=== PATIENT | female | born 1930 | race Caucasian/White ===

== ENCOUNTER 2016-06-28 20:34 | Observation (INO) ==
[2016-06-29] MEDS ORDERED: Naloxone 0.4 MG/ML INJ IVP PRN (01:59)
[2016-06-29] MEDS ORDERED: *HR* Morphine 2 MG/ML SYRINGE IVP PRN (01:59)
[2016-06-29] MEDS ORDERED: Ondansetron 4 MG/2 ML VIAL IVP PRN (01:59)
[2016-06-29] MEDS ORDERED: Acetaminophen 325 MG TABLET PO PRN ×2 (01:59→17:50)
[2016-06-29] MEDS ORDERED: *HR* OxyCODONE Immed Rel 5 MG TABLET PO PRN (01:59)
[2016-06-29] MEDS ORDERED: 0.9 % Sodium Chloride 1,000 ML IVC SCH (02:00)
--- NOTE | 2016-06-29 02:11 | Internal Med History&Physical ---
Date of Encounter: 06/28/16 Time of Encounter: 23:45 Assessment and Plan (1) Closed subcapital fracture of right femur Status: Acute . Qualifiers: Encounter type: initial encounter Qualified Code(s): S72.011A - Unspecified intracapsular fracture of right femur, initial encounter for closed fracture (2) At risk for fall due to comorbid condition Status: Acute . (3) At risk for activity intolerance Status: Acute . (4) At risk for acute confusion Status: Acute . (5) Advanced dementia Status: Chronic . (6) Schizophrenia, unspecified Status: Chronic . Qualifiers: Schizophrenia type: undifferentiated schizophrenia Qualified Code(s): F20.3 - Undifferentiated schizophrenia (7) Expressive aphasia Status: Chronic . (8) Blindness of both eyes Status: Chronic . Internal Medicine - H&P: HPI Chief complaint: Mechanical fall. Right hip fracture. Admitted From: Hospital to Hospital Transfer (Hospital transfer from [place], [place], ED) History of present illness: Ms. Cerda is a 85 year old female history significant for advanced dementia unspecified/ behavioral disturbance, depression and anxiety disorder/ schizophrenia unspecified/panic disorder, hypothyroidism, osteoarthritis, osteoporosis, history of traumatic subdural hemorrhage/CVA/expressive aphasia, recurrent UTIs, hypertension, dyslipidemia, blindness unspecified, frequent falls, MIREYA, nonsmoker The patient was visited and interviewed and examined. She presents with advanced dementia and expressive aphasia. She is a non-historian of circumstances and events. Details of collected from outside medical records, emergency medical staff triage and [facility] database. The patient is admitted to the [facility] as a hospital transfer from the emergency department at [facility]. She presented there via EMS services. Right hip injury. The patient has advanced dementia. EMS staff reported patient had fell a few days earlier and an x-ray had been done in the [facility] where she lives in long- term care assignment of ER presentation. This study demonstrated a closed right subcapital femoral fracture. Cumulative laboratory and radiographic data base was considered and discussed. Pertinent ancillary medical records including ECW and PCI documentation when available was reviewed and considered. Given the patient's presenting concerns, past medical history, clinical findings and symptoms, she is admitted at this time will undergo further evaluation and disposition. Orders were written as per the computerized physician customs and border protection officer system.......................................................................... .................... Consultative opinions will be sought as clinical circumstances justify. Initial consultative opinion has been requested of orthopedic surgery. Pain management needs will be addressed. Laboratory+ radiographic data base will be updated as appropriate. Studies include: urine culture, pt/inr, aptt, cardiac injury panel, BNP, metabolic and hematologic panel, magnesium, phosphorus, ionized calcium, thyroid panel, lipid profile, A1c, C-peptide, CRP, sedimentation rate, blood gas, UA, lactic acid, serologies, etc. Precautions: Aspiration, fall, delirium protocol/surveillance initiated. Telemetry with continuous hemodynamic monitoring and pulse oximetry initiated. Empiric antibody coverage: Intravenous Azteonam pending culture data. Special studies: chest x-ray, telemetry, EKG. and preoperative echocardiogram. Pulmonary toilet: Incentive spirometry. PRNaerosol bronchodilator, mucolytic, antitussive. Supplemental oxygen. Corticosteroid therapyPRN. CPAP/BiPAP supplemental oxygen delivery employedPRN. Aerosol Mucomyst therapy may be employedPRN. Fluid and electrolyte repletion efforts will proceed. Careful attention to fluid balance and renal recovery will be emphasized. Avoidance of nephrotoxic exposure and adverse drug drug interaction in the setting of impaired renal function will be monitored closely. Acute coronary syndrome protocol/surveillance initiated. DVT and PUD prophylaxis initiated: PPI therapy, intermittent pneumatic cuffs. Subcutaneous heparin. Early ambulation will be encouraged. Immunization updates recommended. Influenza and pneumococcal vaccinations as part of ongoing preventative healthcare recommendations strongly recommended. Smoking cessation counseling briefly addressed. Patient is a nonsmoker. Advanced care directive discussion briefly addressed. Patient does not declare any healthcare restrictions at this time. Cardiovascular risk appraisal and cardiovascular risk reduction efforts will be emphasized. Physical +occupational therapy consulted to evaluate patient's functional capacity and progress mobility as her circumstances permit. Nutrition/dietary education counseling may be considered as circumstances justify. Outpatient medication schedules will be reviewed, confirmed and facilitated as appropriate. Reconciliation of home treatments including adjustments, substitutions and reintroduction into the treatment regimen will address necessary maintenance therapies for chronic pre-existing medical conditions. Plan of care has been reviewed and discussed in detail with the patient's caregivers. Questions addressed. Hospital course dictated by clinical findings, treatment response and potential consultative interventions. Patient is at risk for further acute clinical decline due to her age, chief complaints and comorbid conditions. Condition is serious. Prognosis is guarded. CODE STATUS is full. Past Med Surg Social Fam HX - Past Medical History Source: old records reviewed Medical history: arthritis, CVA (Traumatic subdural hemorrhage history. Expressive aphasia.), dementia, GERD, hyperlipidemia, hypertension, osteoporosis , renal disease (Stress urinary incontinence with frequent urinary tract infections.), thyroid disease, other (Blindness. Macular degeneration.) Psychiatric history: anxiety, depression, panic disorder, schizophrenia, other - Past Surgical History Surgical History: non-contributory, other - Social History Smoking Status: Unknown if ever smoked Smokeless Tobacco Status: No Alcohol use: none Drug use: none Occupational status: unemployed Current living situation: [facility] Activity Level: Independent ambulation, Mostly sedentary Recent Out of Country Travel Within the Last 8 Weeks: No Exposure or Possible Exposure to Illness During Travel: No - Family History Father Living Status: Hx Family Cardiac Disorders: Yes Hx Family Respiratory Disorders: Yes Hx Family Cancer: Yes Hx Family GI Disorders: No Hx Family Genitourinary Disorders: No Hx Family Endocrine Disorder: Yes Hx Family Musculoskeletal Disorders: No Hx Family Neuromuscular Disorders: No Hx Family Neurologic Disorders: No Hx Family HEENT Disorders: No Hx Family Autoimmune Disorders: No Hx Family Reproductive Disorders: No Hx Family Psychosocial Disorders: No Hx Family Medical Disorders: No Internal Medicine - H&P: Meds Alendronate Sodium [Fosamax] 70 mg PO QWEEK 05/05/15 [History] Calcium Carbonate/Vitamin D3 [Calcium 600 + Vit D Softgel] 1 each PO DAILY 05/05 [History] Citalopram [CeleXA] 10 mg PO DAILY 05/05/15 [History] Levothyroxine [Synthroid] 75 mcg PO DAILY 05/05/15 [History] Lisinopril [Zestril] 10 mg PO DAILY 05/05/15 [History] Magnesium Hydroxide [Milk of Magnesia] 30 ml PO DAILY PRN 05/05/15 [History] Propranolol [Inderal] 20 mg PO BID 05/05/15 [History] TraMADol [Ultram] 50 mg PO TID 05/05/15 [History] Donepezil [Aricept] 5 mg PO DAILY 11/16/15 [History] Potassium Chloride [K-Tab ER] 1 tab PO DAILY 06/28/16 [History] RisperiDONE [RisperDAL] 0.25 mg PO DAILY 06/28/16 [History] HYDROcodone/Acet 5/325 mg [[place] 5-325 mg] 1 tab PO Q8H PRN 06/29/16 [History] Acetaminophen [Tylenol] 650 mg PO BID PRN #60 tablet 07/01/16 [Rx] Acetaminophen [Tylenol] 650 mg PO Q6HR PRN #60 tablet 07/01/16 [Rx] Ciprofloxacin HCl [Cipro] 500 mg PO BID #14 tablet 07/01/16 [Rx] Docusate [Colace] 100 mg PO BID PRN #60 capsule 07/01/16 [Rx] Omeprazole [PriLOSEC] 20 mg PO DAILY@0630 #30 capsule. 07/01/16 [Rx] OxyCODONE Immed Rel [Roxicodone 5 MG] 5 mg PO Q6HR PRN #30 tablet 07/01/16 [Rx] Sennosides/Docusate Sodium [Senna Plus] 1 each PO DAILY #60 tablet 07/01/16 [Rx] Thiamine (B-1) [Vitamin B-1] 200 mg PO DAILY #90 tablet 07/01/16 [Rx] Allergies Penicillins Allergy (Verified 05/05/15 17:23) See Comments ROS unobtainable: due to mental status All Systems PM: A 10-system review of systems was performed and is negative for pertinent findings except as documented above in the HPI. - Constitutional Constitutional: as per HPI - EENT Eyes: as per HPI Ears: as per HPI Nose, mouth and throat: as per HPI - Breasts Breasts: as per HPI - Cardiovascular Cardiovascular ROS IM: as per HPI - Respiratory Respiratory: as per HPI - Gastrointestinal Gastrointestinal: as per HPI - Genitourinary Genitourinary: as per HPI - Musculoskeletal Musculoskeletal ROS IM: as per HPI - Integumentary Integumentary IM: as per HPI - Neurological Neurological ROS: as per HPI - Psychiatric Psychiatric: as per HPI - Endocrine Endocrine IM: as per HPI - Hematologic/Lymphatic Hematologic/Lymphatic: as per HPI - Allergic/Immunologic Allergic/Immunologic: as per HPI - Constitutional Vitals: Temp Pulse Resp BP Pulse Ox 98.3 F 96 17 142/94 94 L 06/28/16 22:52 06/28/16 22:52 06/28/16 22:52 06/28/16 22:52 06/28/16 22:52 General appearance: Present: cachectic, A&O X 1, disheveled. Absent: cooperative, answers questions appropriately - Head Head exam: Present: atraumatic, normocephalic - Eye Eye exam: Present: conjuntiva pink, sclera anicteric Pupils: Absent: normal accommodation - ENT ENT exam: Present: mucous membranes moist, normal oropharynx - Neck Neck exam general surgery: Present: full ROM, supple, trachea midline. Absent: lymphadenopathy - Respiratory Respiratory exam: Present: decreased breath sounds, CTAB. Absent: accessory muscle use, rales, rhonchi, wheezes - Cardiovascular Cardiovascular exam: Present: distant heart sounds, RRR, +S1, +S2. Absent: diastolic murmur, gallop, rubs, systolic murmur - GI/Abdominal GI/Abdominal exam: Present: normal bowel sounds, soft, no peritoneal signs. Absent: distended, tenderness - Extremities Exam Extremities exam: Present: tenderness, warm, radial pulses palpable and symetrical. Absent: calf tenderness, cyanotic, full ROM, pedal edema - Expanded Lower Extremities Exam Hip exam: Present: shortening, swelling, tenderness. Absent: full ROM, normal inspection Neuro vascular tendon exam: Present: significant pain with passive ROM of distal joint Gait: Present: not tested/not observed, unable to bear weight - Neurological Exam Neurological exam: Present: altered, CN II-XII intact, motor sensory deficit, speech deficit. Absent: oriented X3, strengths equal and symetr throughout - Expanded Neurological Exam Neurological exam expanded: Present: ataxia, expressive aphasia, inattentive, protecting the airway Patient oriented to: Present: person. Absent: place, time Speech: Present: expressive aphasia Coma Scale Eye Opening: To Pain Coma Scale Motor Response: Withdraws to Pain Coma Scale Verbal Response: Incomprehensible Coma Scale Total: 8 - Psychiatric Psychiatric exam: Present: flat affect - Skin Skin exam: Present: dry, intact Internal Med - H&P Results - Labs CBC & Chem 7: 06/30/16 08:33 06/29/16 05:56 Labs: Abnormal lab results WBC 18.3 K/mcL (4.3-11.1) H 06/30/16 08:33 Neutrophils # 13.4 K/mcL (1.6-8.9) H 06/30/16 08:33 Monocytes # 1.9 K/mcL (0.0-1.3) H 06/30/16 08:33 PT 13.8 Seconds (9.4-12.1) H 06/29/16 05:56 VBG pH 7.47 pH Units (7.32-7.42) H 06/29/16 05:56 VBG pCO2 35 mmHg (41-51) L 06/29/16 05:56 VBG pO2 102 mmHg (25-40) H 06/29/16 05:56 BUN 22 mg/dL (7-20) H 06/29/16 05:56 Glucose 149 mg/dL (70-99) H 06/29/16 05:56 AST 65 Units/L (5-34) H 06/29/16 05:56 Albumin 3.4 g/dL (3.5-5.0) L 06/29/16 05:56 LDL Cholesterol, Calc 109 mg/dL (0-99) H 06/29/16 05:56 HDL Cholesterol 62 mg/dL (40-59) H 06/29/16 05:56 Urine Clarity Cloudy (Clear) A 06/29/16 22:00 Ur Specific [place] 1.030 (1.010-1.025) H 06/29/16 22:00 Urine Protein 100 mg/dL (Neg-Trace) H 06/29/16 22:00 Urine Glucose (UA) 250 mg/dL (Normal) H 06/29/16 22:00 Urine Blood Large (Negative) H 06/29/16 22:00 Urine Nitrite Positive (Negative) A 06/29/16 22:00 Urine Bilirubin Small (Negative) H 06/29/16 22:00 Ur Leukocyte Esterase Moderate (Negative) H 06/29/16 22:00 Urine Microscopic RBC 15-30 per hpf (0-3) H 06/29/16 22:00 Urine Microscopic WBC TNTC per hpf (0-3) H 06/29/16 22:00 Ur Squamous Epith Cells Moderate per lpf (None-Few) H 06/29/16 22:00 Urine Bacteria Many per hpf (None-Few) H 06/29/16 22:00 Ur Culture Indicated? YES (NO) A 06/29/16 22:00 Laboratory Last Values WBC 18.3 K/mcL (4.3-11.1) H 06/30/16 08:33 RBC 4.61 M/mcL (3.82-4.97) 06/30/16 08:33 Hgb 13.8 g/dL (11.5-15.4) 06/30/16 08:33 Hct 42.3 % (35.3-44.9) 06/30/16 08:33 MCV 91.8 fL (83.0-100.0) 06/30/16 08:33 MCH 29.9 pg (28.0-33.3) 06/30/16 08:33 MCHC 32.6 g/dL (31.6-35.5) 06/30/16 08:33 RDW 14.0 % (11.5-14.5) 06/30/16 08:33 Plt Count 205 K/mcL (140-400) 06/30/16 08:33 MPV 10.8 fL (9.4-12.4) 06/30/16 08:33 Immature Gran % 0.5 % (0-4) 06/30/16 08:33 Seg Neutrophils % 73.2 % 06/30/16 08:33 Lymphocytes % 15.1 % 06/30/16 08:33 Monocytes % 10.2 % 06/30/16 08:33 Eosinophils % 0.9 % 06/30/16 08:33 Basophils % 0.1 % 06/30/16 08:33 Neutrophils # 13.4 K/mcL (1.6-8.9) H 06/30/16 08:33 Lymphocytes # 2.8 K/mcL (0.6-4.6) 06/30/16 08:33 Monocytes # 1.9 K/mcL (0.0-1.3) H 06/30/16 08:33 Eosinophils # 0.2 K/mcL (0.0-0.6) 06/30/16 08:33 Basophils # 0.0 K/mcL (0.0-0.2) 06/30/16 08:33 PT 13.8 Seconds (9.4-12.1) H 06/29/16 05:56 INR 1.3 06/29/16 05:56 APTT 32.9 Seconds (26.0-36.0) 06/29/16 05:56 VBG pH 7.47 pH Units (7.32-7.42) H 06/29/16 05:56 VBG pCO2 35 mmHg (41-51) L 06/29/16 05:56 VBG pO2 102 mmHg (25-40) H 06/29/16 05:56 VBG HCO3 25.5 mEq/L (21-27) 06/29/16 05:56 Sodium 139 mEq/L (136-145) 06/29/16 05:56 Potassium 3.8 mEq/L (3.5-4.5) 06/29/16 05:56 Chloride 106 mEq/L (98-109) 06/29/16 05:56 Carbon Dioxide 21 mEq/L (19-29) 06/29/16 05:56 BUN 22 mg/dL (7-20) H 06/29/16 05:56 Creatinine 0.87 mg/dL (0.57-1.11) 06/29/16 05:56 Est GFR ( Amer) > 60 (> 60) 06/29/16 05:56 Est GFR (Non-Af Amer) > 60 (> 60) 06/29/16 05:56 BUN/Creatinine Ratio 25 (6-26) 06/29/16 05:56 Glucose 149 mg/dL (70-99) H 06/29/16 05:56 Calculated Osmolality 294 (280-300) 06/29/16 05:56 Calcium 9.1 mg/dL (8.6-10.8) 06/29/16 05:56 Phosphorus 3.0 mg/dL (2.3-4.7) 06/29/16 05:56 Magnesium 1.7 mg/dL (1.6-2.6) 06/29/16 05:56 Total Bilirubin 1.1 mg/dL (0.2-1.2) 06/29/16 05:56 AST 65 Units/L (5-34) H 06/29/16 05:56 ALT 20 Units/L (0-55) 06/29/16 05:56 Alkaline Phosphatase 83 Units/L (38-126) 06/29/16 05:56 Serum Total Protein 6.6 g/dL (6.0-8.3) 06/29/16 05:56 Albumin 3.4 g/dL (3.5-5.0) L 06/29/16 05:56 Globulin 3.2 g/dL (2.4-3.5) 06/29/16 05:56 Albumin/Globulin Ratio 1.1 (1.1-2.2) 06/29/16 05:56 Triglycerides 62 mg/dL (< 150) 06/29/16 05:56 Cholesterol 183 mg/dL (< 200) 06/29/16 05:56 LDL Cholesterol, Calc 109 mg/dL (0-99) H 06/29/16 05:56 VLDL Cholesterol, Calc 12 mg/dL (< 31) 06/29/16 05:56 HDL Cholesterol 62 mg/dL (40-59) H 06/29/16 05:56 Cholesterol/HDL Ratio 3.0 (0-4.9) 06/29/16 05:56 Vitamin B12 325 pg/mL (213-816) 06/30/16 08:33 Urine Color Dark Yellow (Yellow) 06/29/16 22:00 Urine Clarity Cloudy (Clear) A 06/29/16 22:00 Urine pH 6.5 pH Units (5.0-8.0) 06/29/16 22:00 Ur Specific [place] 1.030 (1.010-1.025) H 06/29/16 22:00 Urine Protein 100 mg/dL (Neg-Trace) H 06/29/16 22:00 Urine Glucose (UA) 250 mg/dL (Normal) H 06/29/16 22:00 Urine Ketones Negative mg/dL (Negative) 06/29/16 22:00 Urine Blood Large (Negative) H 06/29/16 22:00 Urine Nitrite Positive (Negative) A 06/29/16 22:00 Urine Bilirubin Small (Negative) H 06/29/16 22:00 Urine Urobilinogen Normal mg/dL (Normal) 06/29/16 22:00 Ur Leukocyte Esterase Moderate (Negative) H 06/29/16 22:00 Urine Microscopic RBC 15-30 per hpf (0-3) H 06/29/16 22:00 Urine Microscopic WBC TNTC per hpf (0-3) H 06/29/16 22:00 Ur Squamous Epith Cells Moderate per lpf (None-Few) H 06/29/16 22:00 Urine Bacteria Many per hpf (None-Few) H 06/29/16 22:00 Hyaline Casts None Seen per lpf (None-Few) 06/29/16 22:00 Ur Culture Indicated? YES (NO) A 06/29/16 22:00 - Impressions Vital Signs Temp Pulse Resp BP Pulse Ox 06/28/16 22:52 98.3 F 96 17 142/94 94 L Intake and Output 06/28/16 06/28/16 06/29/16 15:59 23:59 07:59 Output Total 50 / 50 Balance -50 / -50 Output: Urine 50 / 50 Urethral ([place]) 50 / 50 Other: Weight 56.3 kg Allergies Allergy/AdvReac Type Severity Reaction Status Date / Time Penicillins Allergy See Verified 05/05/15 17:23 Comments Abnormal lab results PT 13.8 Seconds (9.4-12.1) H 06/29/16 05:56 VBG pH 7.47 pH Units (7.32-7.42) H 06/29/16 05:56 VBG pCO2 35 mmHg (41-51) L 06/29/16 05:56 VBG pO2 102 mmHg (25-40) H 06/29/16 05:56 Vital Signs Temp Pulse Resp BP Pulse Ox 06/29/16 06:33 95 06/29/16 04:00 98.4 F 98 18 146/91 94 L 06/28/16 22:52 98.3 F 96 17 142/94 94 L Intake and Output 06/28/16 06/28/16 06/29/16 15:59 23:59 07:59 Output Total 50 / 50 Balance -50 / -50 Output: Urine 50 / 50 Urethral ([place]) 50 / 50 Other: Weight 56.3 kg Chest X-Ray 06/29/16 02:38 IMPRESSION: Scattered opacities throughout the lungs either atelectasis or asymmetric pneumonia D/ / Jac Bean MD / Jac Bean MD Interpreting Provider: Jac Bean MD - Attending Attestation Allergies Penicillins Allergy (Verified 05/05/15 17:23) See Comments Home Medications Medication Instructions Recorded Confirmed Type Alendronate Sodium [Fosamax] 70 mg PO QWEEK 05/05/15 06/29/16 History Calcium Carbonate/Vitamin D3 1 each PO DAILY 05/05/15 06/29/16 History [Calcium 600 + Vit D Softgel] Citalopram [CeleXA] 10 mg PO DAILY 05/05/15 06/29/16 History Levothyroxine [Synthroid] 75 mcg PO DAILY 05/05/15 06/29/16 History Lisinopril [Zestril] 10 mg PO DAILY 05/05/15 06/29/16 History Magnesium Hydroxide [Milk of 30 ml PO DAILY PRN 05/05/15 06/29/16 History Magnesia] Propranolol [Inderal] 20 mg PO BID 05/05/15 06/29/16 History TraMADol [Ultram] 50 mg PO TID 05/05/15 06/29/16 History Donepezil [Aricept] 5 mg PO DAILY 11/16/15 06/29/16 History Potassium Chloride [K-Tab ER] 1 tab PO DAILY 06/28/16 06/29/16 History RisperiDONE [RisperDAL] 0.25 mg PO DAILY 06/28/16 06/29/16 History HYDROcodone/Acet 5/325 mg [[place] 1 tab PO Q8H PRN 06/29/16 06/29/16 History 5-325 mg] Prescriptions Medication Instructions Recorded Type Acetaminophen [Tylenol] 650 mg PO BID PRN #60 tablet 07/01/16 Rx Acetaminophen [Tylenol] 650 mg PO Q6HR PRN #60 tablet 07/01/16 Rx Ciprofloxacin HCl [Cipro] 500 mg PO BID #14 tablet 07/01/16 Rx Docusate [Colace] 100 mg PO BID PRN #60 capsule 07/01/16 Rx Omeprazole [PriLOSEC] 20 mg PO DAILY@0630 #30 capsule. 07/01/16 Rx OxyCODONE Immed Rel [Roxicodone 5 5 mg PO Q6HR PRN #30 tablet 07/01/16 Rx MG] Sennosides/Docusate Sodium [Senna 1 each PO DAILY #60 tablet 07/01/16 Rx Plus] Thiamine (B-1) [Vitamin B-1] 200 mg PO DAILY #90 tablet 07/01/16 Rx Medications Discontinued Medications Acetaminophen (Tylenol) 650 mg PO Q6HR PRN PRN Reason: Mild Pain (1-3) Stop: 12/29/16 02:00 Acetaminophen (Tylenol) 650 mg PO Q6HR [facility] Stop: 07/02/16 12:01 Last Admin: 07/01/16 11:41 Dose: 650 mg Acetaminophen (Tylenol) 650 mg PO BID PRN PRN Reason: Mild Pain (1-3) Stop: 12/29/16 02:00 Aspirin (Aspirin) 81 mg PO DAILY [facility] Stop: 12/29/16 09:01 Last Admin: 07/01/16 09:19 Dose: 81 mg Calcium Carbonate (Tums) 1 mg PO DAILY [facility] Stop: 12/29/16 09:01 Last Admin: 07/01/16 09:21 Dose: Citalopram Hydrobromide (Celexa) 10 mg PO DAILY [facility] Stop: 12/29/16 09:01 Last Admin: 07/01/16 09:09 Dose: 10 mg Docusate Sodium (Colace) 100 mg PO BID PRN PRN Reason: Constipation Stop: 12/29/16 02:00 Enoxaparin Sodium (Lovenox) 30 mg SQ 0600 [facility] PRN Reason: Protocol Stop: 12/30/16 06:01 Last Admin: 07/01/16 06:00 Dose: 30 mg Enoxaparin Sodium (Lovenox) 30 mg SQ ONCE ONE PRN Reason: Protocol Stop: 06/29/16 17:28 Last Admin: 06/29/16 18:21 Dose: 30 mg Sodium Chloride (0.9 % Sodium Chloride) 1,000 mls @ 50 mls/hr IVC .Q20H [facility] Stop: 12/29/16 02:01 Dextrose/Sodium Chloride (D5% And 0.45% Nacl 1000 Ml Bag) 1,000 mls @ 75 mls/ hr IVC .[id number] [facility] Stop: 12/29/16 18:01 Last Infusion: 07/01/16 17:30 Dose: 0 mls/hr Aztreonam 500 mg/ Dextrose 100 mls @ 200 mls/hr IVPB Q8HR [facility] Stop: 12/30/16 01:38 Last Infusion: 06/30/16 03:45 Dose: 0 mls/hr Ciprofloxacin Lactate (Cipro 400 Mg/200 Ml) 400 mg in 200 mls @ 200 mls/hr IVPB Q12HR [facility] Stop: 12/30/16 18:01 Last Infusion: 07/01/16 09:24 Dose: 0 mls/hr Levothyroxine Sodium (Synthroid) 75 mcg PO DAILY [facility] Stop: 12/29/16 09:01 Last Admin: 06/30/16 09:54 Dose: 75 mcg Levothyroxine Sodium (Synthroid) 75 mcg PO DAILY@0600 [facility] Stop: 12/29/16 09:01 Last Admin: 07/01/16 06:02 Dose: 75 mcg Lisinopril (Zestril) 10 mg PO DAILY [facility] PRN Reason: Protocol Stop: 12/29/16 09:01 Last Admin: 07/01/16 09:08 Dose: 10 mg Morphine Sulfate (Morphine Sulfate) 2 mg IVP Q4HR PRN PRN Reason: Severe Pain (7-10) Stop: 12/29/16 02:00 Naloxone HCl (Narcan) 0.4 mg IVP Q2MIN PRN PRN Reason: Opioid Reversal Stop: 12/29/16 02:00 Omeprazole (Prilosec) 20 mg PO DAILY@0630 [facility] PRN Reason: Protocol Stop: 12/29/16 06:31 Last Admin: 07/01/16 06:00 Dose: 20 mg Ondansetron HCl (Zofran) 4 mg IVP Q8HR PRN PRN Reason: Nausea And Vomiting Stop: 12/29/16 02:00 Oxycodone HCl (Roxicodone) 5 mg PO Q6HR PRN PRN Reason: Moderate Pain (4-6) Stop: 12/29/16 02:00 Potassium Chloride (Potassium Chloride) 20 meq PO DAILY [facility] Stop: 12/29/16 09:01 Last Admin: 07/01/16 09:18 Dose: 20 meq Propranolol HCl (Inderal) 20 mg PO BID [facility] Stop: 12/29/16 09:01 Last Admin: 07/01/16 09:08 Dose: 20 mg Risperidone (Risperdal) 0.25 mg PO DAILY [facility] Stop: 12/29/16 09:01 Last Admin: 07/01/16 09:08 Dose: 0.25 mg Senna/Docusate Sodium (Senna Plus) 2 each PO DAILY [facility] PRN Reason: Protocol Stop: 12/29/16 18:01 Last Admin: 07/01/16 09:19 Dose: 2 each Thiamine HCl (Vitamin B-1) 200 mg PO DAILY [facility] Stop: 12/29/16 18:46 Last Admin: 07/01/16 09:18 Dose: 200 mg Tramadol HCl (Ultram) 50 mg PO QID [facility] Stop: 12/29/16 09:01 Last Admin: 07/01/16 13:38 Dose: Not Given Non-Admin Reason: Patient Refused Microbiology Results 06/29/16 22:00 Urine,Clean Catch Urine Culture - Final Proteus mirabilis Nursing Notes 07/01/16 16:58 Nurse Note by Candace Skinner Addendum entered by Candace Skinner, RN 07/01/16 16:59: [facility] called for transport with ETA of 20 minutes Original Note: tu Stark aware of transfer to [facility] and [facility] Initialized on 07/01/16 16:58 - END OF NOTE 07/01/16 16:55 Nurse Note by Candace Skinner report called to [place] [facility] [place] Initialized on 07/01/16 16:55 - END OF NOTE 07/01/16 16:40 Nurse Note by Candace Skinner charting completed by student nurse Kati Melvin reviewed Initialized on 07/01/16 16:40 - END OF NOTE 07/01/16 15:30 (created 07/01/16 16:08) Nurse Note by Candace Skinner patient without void - bladder scan=40ml urine in bladder - Dr. Coffey aware Initialized on 07/01/16 16:08 - END OF NOTE 07/01/16 15:15 PT Missed Visit by Hussein Kumar PT Missed Visit PT Missed Visit Start: 06/29/16 08: 40 Freq: Status: Active Document 07/01/16 15:13 BRITTANY (Rec: 07/01/16 15:15 BRITTANY [id number]) Missed Visit Reason Comment Pt is not appropriate for skilled PT services at this time. See OT screen for details. Preliminary Draft Until Electronically Signed by Supervising Therapist Initialized on 07/01/16 15:15 - END OF NOTE 07/01/16 14:48 O.T. Screen by Lidia Loja Occupational Therapy Screen Start: 07/01/16 14: 45 Freq: Status: Active Document 07/01/16 14:45 TNB (Rec: 07/01/16 14:47 TNB [id number]) Rehab Screen Reason Reason for Screen Not a Skilled Rehab Candidate Comment Received OT consult. Pt not appropriate for PT/OT evaluation at this time. Pt unable arouse and follow 1 step commands to actively participate in evalution. Per RN, family member reports Pt spent most of her days sleeping in bed. Will d/c OT order. Pt planned to d/c back to [facility] today or tomorrow. Stroke Is patient being assessed for No rehabilitation for diagnosis of stroke? Preliminary Draft Until Electronically Signed by Supervising Therapist Initialized on 07/01/16 14:48 - END OF NOTE 07/01/16 11:33 Nurse Note by Miguelina Olsen dc'd by student nurse accompanied by instructor Initialized on 07/01/16 11:33 - END OF NOTE 07/01/16 09:42 Nurse Note by Miguelina Olsen 0900 medications administered by student nurse Sisi Santana accompanied by instructor Initialized on 07/01/16 09:42 - END OF NOTE 06/30/16 10:43 Nurse Note by Tim Vargas Student's charting reviewed. Initialized on 06/30/16 10:43 - END OF NOTE 06/30/16 09:47 Nurse Note by Tim Vargas Medications given per Janeen GOOD Initialized on 06/30/16 09:47 - END OF NOTE 06/30/16 08:07 PT Missed Visit by Yael Gonzalez PT Missed Visit PT Missed Visit Start: 06/29/16 08: 40 Freq: Status: Active Document 06/30/16 08:07 LJS (Rec: 06/30/16 08:07 LJS [id number]) Missed Visit Reason Missed Visit Reason Medical Hold Comment per hospitalist notes, family wanting to meet with orthopedic surgeon to discuss risk vs benefits for surgery. Will await decision to determine if surgery is appropriate for patient before PT eval performed. Preliminary Draft Until Electronically Signed by Supervising Therapist Initialized on 06/30/16 08:07 - END OF NOTE 06/30/16 07:51 OT Missed Visit by Lidia Loja OT Missed Visit OT Missed Visit Start: 06/29/16 07: 40 Freq: Status: Active Document 06/30/16 07:50 TNB (Rec: 06/30/16 07:51 TNB [id number]) Missed Visit Reason Missed Visit Reason Medical Hold Comment per hospitalist notes, family wanting to meet with orthopedic surgeon to discuss risk vs benefits for surgery. Will await decision to determine if surgery is appropriate for patient before OT eval performed. Preliminary Draft Until Electronically Signed by Supervising Therapist Initialized on 06/30/16 07:51 - END OF NOTE 06/30/16 00:55 Nurse Note by Nohemy Panda MADE DR MAGALLANES AWARE THAT PT UA RESULTED Initialized on 06/30/16 00:55 - END OF NOTE 06/29/16 08:40 PT Missed Visit by Marva Bruno PT Missed Visit PT Missed Visit Start: 06/29/16 08: 40 Freq: Status: Active Document 06/29/16 08:40 RLM (Rec: 06/29/16 08:40 RLM [id number]) Missed Visit Reason Missed Visit Reason Awaiting ortho consult Comment Patient awaiting ortho consult will hold at this time and follow-up. Preliminary Draft Until Electronically Signed by Supervising Therapist Initialized on 06/29/16 08:40 - END OF NOTE 06/29/16 07:41 OT Missed Visit by Amada Wolf OT Missed Visit OT Missed Visit Start: 06/29/16 07: 40 Freq: Status: Active Document 06/29/16 07:40 LLN (Rec: 06/29/16 07:41 LLN [id number]) Missed Visit Reason Missed Visit Reason Awaiting ortho consult Comment Patient awaiting ortho consult will hold at this time and follow-up. Preliminary Draft Until Electronically Signed by Supervising Therapist Initialized on 06/29/16 07:41 - END OF NOTE Orders 06/28/16 23:25 Consult to Vacuum Cleaner Repairer [CONS] Routine Reason for SW Consult: Rehab placement 06/29/16 01:59 Peripheral IV [RC] CONT Placement to Observation Routine Physician Instructions: Reason for Visit: Right hip fracture Is VTE Prophylaxis Indicated?: Yes Vital Signs Assessment [RC] Q4H Acetaminophen [Tylenol] 650 mg PO Q6HR PRN Docusate [Colace] 100 mg PO BID PRN Morphine [Morphine Sulfate] 2 mg IVP Q4HR PRN Naloxone [Narcan] 0.4 mg IVP Q2MIN PRN Ondansetron [Zofran] 4 mg IVP Q8HR PRN OxyCODONE Immed Rel [Roxicodone] 5 mg PO Q6HR PRN 06/29/16 02:00 Bed rest [RC] .CONT Physician Instructions: Bed rest w/bedside commode [RC] .PRN Cardiac Monitoring Med/Surg [RC] .CONT Telemetry Reason: Stroke/Syncope/TIA Continuous pulse oximetry [RC] CONT Comment: Measure intake and output [RC] QSHIFT Measure weight [RC] DAILY RT has an order or consult [RC] NOW 0.9 % Sodium Chloride 1,000 ml IVC 50 mls/hr Up with Assist Daily Comment: Physician Instructions: 06/29/16 02:01 Oxygen via nasal cannula Nasal Cannula 2 lpm Comment: Titrate O2 to main O2 sat greater than: 92% 06/29/16 02:03 Consult to Occupational Therapy [CONS] Routine Comment: Evaluate, develop and implement POC Consult to Physical Therapy [CONS] Routine Comment: Evaluate, develop and implement POC 06/29/16 02:36 DNR [Resuscitation Status: Active] [RES] Routine Comment: Resuscitation Status: DNR-Comfort Care 06/29/16 02:38 XR chest 1V portable [XR] Routine Mode Of Transportation: Ambulatory Reason For Exam: preop Order Doctor: Tae Macario Exam Performed At:: [facility] 06/29/16 05:56 Activated Partial Thrombo Time [COAG] AM 0400 Comment: Specimen: Send someone from the department to collect Complete Blood Count [HEME] AM 0400 Comment: Specimen: Send someone from the department to collect Comprehensive Metabolic Panel AM 0400 Comment: Specimen: Send someone from the department to collect Lipid Panel AM 0400 Comment: Specimen: Send someone from the department to collect Magnesium AM 0400 Comment: Specimen: Send someone from the department to collect Phosphorous AM 0400 Comment: Specimen: Send someone from the department to collect Prothrombin Time INR [COAG] AM 0400 Comment: Specimen: Send someone from the department to collect VBG [Venous Blood Gas] AM 0400 Comment: Specimen: Send someone from the department to collect 06/29/16 06:00 ECG 12 lead ECG [ECG] AM 0600 Mode Of Transportation: Ambulatory Reason For Exam: preop Order Doctor: Tae Macario Exam Performed At:: [facility] 06/29/16 06:30 Omeprazole [PriLOSEC] 20 mg PO DAILY@0630 06/29/16 08:00 Consult to Physician [CONS] Routine Consulting Provider: Rick Lizarraga Reason for Consult: Acute right hip fracture Time Notified: 02:02 Call Completed: Yes 06/29/16 09:00 Aspirin 81 mg PO DAILY Calcium Carbonate [Tums] 1 mg PO DAILY How will this medication be supplied?: Pharmacy to Subsitute Citalopram [CeleXA] 10 mg PO DAILY Levothyroxine [Synthroid] 75 mcg PO DAILY Lisinopril [Zestril] 10 mg PO DAILY Potassium Chloride 20 meq PO DAILY How will this medication be supplied?: Pharmacy to Subsitute Propranolol [Inderal] 20 mg PO BID RisperiDONE [RisperDAL] 0.25 mg PO DAILY TraMADol [Ultram] 50 mg PO QID 06/29/16 17:27 Enoxaparin [Lovenox] 30 mg SQ ONCE ONE 06/29/16 17:50 Acetaminophen [Tylenol] 650 mg PO BID PRN 06/29/16 18:00 Acetaminophen [Tylenol] 650 mg PO Q6HR D5% in 0.45% NACL [D5% And 0.45% Nacl 1000 Ml Bag] 1,000 ml IVC 75 mls/hr Sennosides/Docusate Sodium [Senna Plus] 2 each PO DAILY 06/29/16 18:39 12 lead ECG assessment [RC] NOW EKG [ECG 12 lead ECG] [ECG] Routine Mode Of Transportation: Ambulatory Reason For Exam: pre operative Order Doctor: David Coffey Exam Performed At:: [facility] 06/29/16 18:45 Thiamine (B-1) [Vitamin B-1] 200 mg PO DAILY 06/29/16 22:00 Culture,Urine [RM] Routine VERONICA Source: [facility] Specimen Description: UA w. reflex culture [Urinalysis Reflex Cult & Micro] [URIN] Routine Comment: Specimen: Has been collected 06/29/16 Breakfast Clear Liquid Diet Diet Modifications: 06/29/16 Dinner Clear Liquid Diet Diet Modifications: Dietary Supplement Comment: Diet Modifications: clear ensure TID 06/30/16 01:37 Aztreonam [Azactam] 500 mg D5% in Water (Mini-Bag+) [Dextrose 5% (Minibag+) 100 ML] 100 ml IVPB Q8HR 06/30/16 02:00 Up with Assist Daily Comment: Physician Instructions: 06/30/16 06:00 Enoxaparin [Lovenox] 30 mg SQ 0600 06/30/16 08:33 Complete Blood Count [HEME] Routine Comment: Specimen: Send someone from the department to collect Vitamin B12 Routine Comment: Specimen: Send someone from the department to collect 06/30/16 18:00 Ciprofloxacin 400 MG/200 ML [Cipro 400 MG/200 ML] 400 mg in 200 ml IVPB Q12HR 06/30/16 Breakfast Dietary Supplement Comment: Diet Modifications: strawberry ensure plus TID Mechanically Altered Diet Ground Meat Diet Modifications: 07/01/16 02:00 Up with Assist Daily Comment: Physician Instructions: 07/01/16 06:00 Levothyroxine [Synthroid] 75 mcg PO DAILY@0600 07/01/16 16:10 Discharge Order [DISCHARGE] Routine Comment: Vital Signs Temp Pulse Resp BP Pulse Ox 07/01/16 14:30 98.1 F 60 16 126/49 95 07/01/16 11:16 98 F 73 16 136/93 97 07/01/16 06:24 97.6 F 71 16 131/89 97 07/01/16 00:37 97.5 F L 65 16 97/67 92 L 06/30/16 22:07 97.7 F 62 16 107/74 973 H 06/30/16 15:00 98.0 F 61 16 120/77 98 06/30/16 11:01 97.8 F 53 16 115/66 97 06/30/16 06:49 97.9 F 59 16 108/57 94 L 06/30/16 01:35 98.1 F 56 15 92/63 92 L 06/29/16 22:56 98.2 F 66 15 98/67 93 L 06/29/16 14:49 97.9 F 74 16 108/65 94 L 06/29/16 11:30 98.3 F 62 16 102/79 93 L 06/29/16 07:18 98.4 F 85 16 165/109 93 L 06/29/16 06:33 95 06/29/16 04:00 98.4 F 98 18 146/91 94 L 06/28/16 22:52 98.3 F 96 17 142/94 94 L Laboratory Results 06/29/16 06/29/16 06/29/16 Range/Units 05:56 05:56 05:56 WBC 18.7 H (4.3-11.1) K/mcL RBC 4.89 (3.82-4.97) M/mcL Hgb 14.6 (11.5-15.4) g/dL Hct 43.3 (35.3-44.9) % MCV 88.5 (83.0-100.0) fL MCH 29.9 (28.0-33.3) pg MCHC 33.7 (31.6-35.5) g/dL RDW 13.5 (11.5-14.5) % Plt Count 249 (140-400) K/mcL MPV 10.8 (9.4-12.4) fL Immature Gran % 0.5 (0-4) % Seg Neutrophils % 79.4 % Lymphocytes % 10.1 % Monocytes % 9.9 % Eosinophils % 0.0 % Basophils % 0.1 % Neutrophils # 14.8 H (1.6-8.9) K/mcL Lymphocytes # 1.9 (0.6-4.6) K/mcL Monocytes # 1.9 H (0.0-1.3) K/mcL Eosinophils # 0.0 (0.0-0.6) K/mcL Basophils # 0.0 (0.0-0.2) K/mcL PT 13.8 H (9.4-12.1) Seconds INR 1.3 APTT 32.9 (26.0-36.0) Seconds VBG pH (7.32-7.42) pH Units VBG pCO2 (41-51) mmHg VBG pO2 (25-40) mmHg VBG HCO3 (21-27) mEq/L Sodium 139 (136-145) mEq/L Potassium 3.8 (3.5-4.5) mEq/L Chloride 106 (98-109) mEq/L Carbon Dioxide 21 (19-29) mEq/L BUN 22 H (7-20) mg/dL Creatinine 0.87 (0.57-1.11) mg/dL Est GFR ( Amer) > 60 (> 60) Est GFR (Non-Af Amer) > 60 (> 60) BUN/Creatinine Ratio 25 (6-26) Glucose 149 H (70-99) mg/dL Calculated Osmolality 294 (280-300) Calcium 9.1 (8.6-10.8) mg/dL Phosphorus 3.0 (2.3-4.7) mg/dL Magnesium 1.7 (1.6-2.6) mg/dL Total Bilirubin 1.1 (0.2-1.2) mg/dL AST 65 H (5-34) Units/L ALT 20 (0-55) Units/L Alkaline Phosphatase 83 (38-126) Units/L Serum Total Protein 6.6 (6.0-8.3) g/dL Albumin 3.4 L (3.5-5.0) g/dL Globulin 3.2 (2.4-3.5) g/dL Albumin/Globulin Ratio 1.1 (1.1-2.2) Triglycerides 62 (< 150) mg/dL Cholesterol 183 (< 200) mg/dL LDL Cholesterol, Calc 109 H (0-99) mg/dL VLDL Cholesterol, Calc 12 (< 31) mg/dL HDL Cholesterol 62 H (40-59) mg/dL Cholesterol/HDL Ratio 3.0 (0-4.9) Vitamin B12 (213-816) pg/mL Urine Color (Yellow) Urine Clarity (Clear) Urine pH (5.0-8.0) pH Units Ur Specific [place] (1.010-1.025) Urine Protein (Neg-Trace) mg/dL Urine Glucose (UA) (Normal) mg/dL Urine Ketones (Negative) mg/dL Urine Blood (Negative) Urine Nitrite (Negative) Urine Bilirubin (Negative) Urine Urobilinogen (Normal) mg/dL Ur Leukocyte Esterase (Negative) Urine Microscopic RBC (0-3) per hpf Urine Microscopic WBC (0-3) per hpf Ur Squamous Epith Cells (None-Few) per lpf Urine Bacteria (None-Few) per hpf Hyaline Casts (None-Few) per lpf Ur Culture Indicated? (NO) 06/29/16 06/29/16 06/30/16 Range/Units 05:56 22:00 08:33 WBC 18.3 H (4.3-11.1) K/mcL RBC 4.61 (3.82-4.97) M/mcL Hgb 13.8 (11.5-15.4) g/dL Hct 42.3 (35.3-44.9) % MCV 91.8 (83.0-100.0) fL MCH 29.9 (28.0-33.3) pg MCHC 32.6 (31.6-35.5) g/dL RDW 14.0 (11.5-14.5) % Plt Count 205 (140-400) K/mcL MPV 10.8 (9.4-12.4) fL Immature Gran % 0.5 (0-4) % Seg Neutrophils % 73.2 % Lymphocytes % 15.1 % Monocytes % 10.2 % Eosinophils % 0.9 % Basophils % 0.1 % Neutrophils # 13.4 H (1.6-8.9) K/mcL Lymphocytes # 2.8 (0.6-4.6) K/mcL Monocytes # 1.9 H (0.0-1.3) K/mcL Eosinophils # 0.2 (0.0-0.6) K/mcL Basophils # 0.0 (0.0-0.2) K/mcL PT (9.4-12.1) Seconds INR APTT (26.0-36.0) Seconds VBG pH 7.47 H (7.32-7.42) pH Units VBG pCO2 35 L (41-51) mmHg VBG pO2 102 H (25-40) mmHg VBG HCO3 25.5 (21-27) mEq/L Sodium (136-145) mEq/L Potassium (3.5-4.5) mEq/L Chloride (98-109) mEq/L Carbon Dioxide (19-29) mEq/L BUN (7-20) mg/dL Creatinine (0.57-1.11) mg/dL Est GFR ( Amer) (> 60) Est GFR (Non-Af Amer) (> 60) BUN/Creatinine Ratio (6-26) Glucose (70-99) mg/dL Calculated Osmolality (280-300) Calcium (8.6-10.8) mg/dL Phosphorus (2.3-4.7) mg/dL Magnesium (1.6-2.6) mg/dL Total Bilirubin (0.2-1.2) mg/dL AST (5-34) Units/L ALT (0-55) Units/L Alkaline Phosphatase (38-126) Units/L Serum Total Protein (6.0-8.3) g/dL Albumin (3.5-5.0) g/dL Globulin (2.4-3.5) g/dL Albumin/Globulin Ratio (1.1-2.2) Triglycerides (< 150) mg/dL Cholesterol (< 200) mg/dL LDL Cholesterol, Calc (0-99) mg/dL VLDL Cholesterol, Calc (< 31) mg/dL HDL Cholesterol (40-59) mg/dL Cholesterol/HDL Ratio (0-4.9) Vitamin B12 (213-816) pg/mL Urine Color Dark Yellow (Yellow) Urine Clarity Cloudy A (Clear) Urine pH 6.5 (5.0-8.0) pH Units Ur Specific [place] 1.030 H (1.010-1.025) Urine Protein 100 H (Neg-Trace) mg/dL Urine Glucose (UA) 250 H (Normal) mg/dL Urine Ketones Negative (Negative) mg/dL Urine Blood Large H (Negative) Urine Nitrite Positive A (Negative) Urine Bilirubin Small H (Negative) Urine Urobilinogen Normal (Normal) mg/dL Ur Leukocyte Esterase Moderate H (Negative) Urine Microscopic RBC 15-30 H (0-3) per hpf Urine Microscopic WBC TNTC H (0-3) per hpf Ur Squamous Epith Cells Moderate H (None-Few) per lpf Urine Bacteria Many H (None-Few) per hpf Hyaline Casts None Seen (None-Few) per lpf Ur Culture Indicated? YES A (NO) 06/30/16 Range/Units 08:33 WBC (4.3-11.1) K/mcL RBC (3.82-4.97) M/mcL Hgb (11.5-15.4) g/dL Hct (35.3-44.9) % MCV (83.0-100.0) fL MCH (28.0-33.3) pg MCHC (31.6-35.5) g/dL RDW (11.5-14.5) % Plt Count (140-400) K/mcL MPV (9.4-12.4) fL Immature Gran % (0-4) % Seg Neutrophils % % Lymphocytes % % Monocytes % % Eosinophils % % Basophils % % Neutrophils # (1.6-8.9) K/mcL Lymphocytes # (0.6-4.6) K/mcL Monocytes # (0.0-1.3) K/mcL Eosinophils # (0.0-0.6) K/mcL Basophils # (0.0-0.2) K/mcL PT (9.4-12.1) Seconds INR APTT (26.0-36.0) Seconds VBG pH (7.32-7.42) pH Units VBG pCO2 (41-51) mmHg VBG pO2 (25-40) mmHg VBG HCO3 (21-27) mEq/L Sodium (136-145) mEq/L Potassium (3.5-4.5) mEq/L Chloride (98-109) mEq/L Carbon Dioxide (19-29) mEq/L BUN (7-20) mg/dL Creatinine (0.57-1.11) mg/dL Est GFR ( Amer) (> 60) Est GFR (Non-Af Amer) (> 60) BUN/Creatinine Ratio (6-26) Glucose (70-99) mg/dL Calculated Osmolality (280-300) Calcium (8.6-10.8) mg/dL Phosphorus (2.3-4.7) mg/dL Magnesium (1.6-2.6) mg/dL Total Bilirubin (0.2-1.2) mg/dL AST (5-34) Units/L ALT (0-55) Units/L Alkaline Phosphatase (38-126) Units/L Serum Total Protein (6.0-8.3) g/dL Albumin (3.5-5.0) g/dL Globulin (2.4-3.5) g/dL Albumin/Globulin Ratio (1.1-2.2) Triglycerides (< 150) mg/dL Cholesterol (< 200) mg/dL LDL Cholesterol, Calc (0-99) mg/dL VLDL Cholesterol, Calc (< 31) mg/dL HDL Cholesterol (40-59) mg/dL Cholesterol/HDL Ratio (0-4.9) Vitamin B12 325 (213-816) pg/mL Urine Color (Yellow) Urine Clarity (Clear) Urine pH (5.0-8.0) pH Units Ur Specific [place] (1.010-1.025) Urine Protein (Neg-Trace) mg/dL Urine Glucose (UA) (Normal) mg/dL Urine Ketones (Negative) mg/dL Urine Blood (Negative) Urine Nitrite (Negative) Urine Bilirubin (Negative) Urine Urobilinogen (Normal) mg/dL Ur Leukocyte Esterase (Negative) Urine Microscopic RBC (0-3) per hpf Urine Microscopic WBC (0-3) per hpf Ur Squamous Epith Cells (None-Few) per lpf Urine Bacteria (None-Few) per hpf Hyaline Casts (None-Few) per lpf Ur Culture Indicated? (NO) Assessments/Treatments Alternative Methods of Communication Start: 06/29/16 11: 37 Freq: Status: Complete Document 07/01/16 16:29 AYW (Rec: 07/01/16 16:36 AY [id number]) Ambulation assistance Start: 06/30/16 05: 06 Freq: Status: Complete Document 07/01/16 16:29 AYW (Rec: 07/01/16 16:36 AYW [id number]) Assist with appraisal of situation/needs Start: 06/29/16 11: 37 Freq: Status: Complete Document 07/01/16 16:29 AYW (Rec: 07/01/16 16:36 AYW [id number]) Cardiac Monitoring Med/Surg Start: 06/29/16 02: 00 Freq: .CONT Status: Complete Document 06/29/16 04:45 ITC (Rec: 06/29/16 07:06 ITC [id number]) Cardiac Monitoring Monitor Number [id number] Strip placed in Chart Yes Alarms/Limits HR Alarm 140/40 Heart Rate 87 EKG Method Telemetry Rhythm Sinus Rhythm DC Interval 0.12 QRS Interval 0.11 QT Interval 0.39 Document 06/29/16 11:44 CNB (Rec: 06/29/16 11:45 CNB [id number]) Cardiac Monitoring Monitor Number [id number] Strip placed in Chart Yes History Reviewed No Memory Cleared No Alarms/Limits Heart Rate 61 EKG Method Telemetry Rhythm Sinus Rhythm DC Interval 0.10 QRS Interval 0.10 QT Interval 0.49 Communication, pharmacist Start: 06/30/16 05: 06 Freq: Status: Complete Document 07/01/16 16:29 AYW (Rec: 07/01/16 16:36 AYW [id number]) Adoption Social Worker Nutrition Assessment Start: 06/29/16 15: 19 Freq: Status: Discharge Document 06/29/16 15:19 LF (Rec: 06/29/16 15:25 LF [id number]) Nutritional Assessment - Adoption Social Worker Subjective Data: 85 yof admit w/ R hip fracture s/p fall at [facility]. Patient w/ advanced dementia, expressive aphasia and is legally blind. Per discussion w/ family member patient does not wear her dentures, takes a soft diet and has no recent weight loss that he is aware of. Patient prefers strawberry flavored oral nutrition supplements. hx; advanced dementia, schizophrenia meds; tums, kcl, prilosec labs; glu 149, AST 65, Alb 3.4 [place] Body Weight 105 Comment ht; 5'1 cbw; 124# Diet clears Feeding Ability Needs Supervision Calories Needed to Maintain Weight 28 kcal/kg IBW = 1344 Estimated Protein Needs 1.2 gm/kg IBW = 58 Initial assessment face to face time Increased nutrient needs with patient (mins) Nutrition Problem PES Statement r/t hip fracture aeb estimated nutritional needs for healing Initial Assessment Face to face time 10 with patient (mins) (minutes) Nutrition Intervention: Meals and Snacks Oral Nutrition Supplement Comment 1. Maintain clear liquids and supplement w/ ensure clear pre -op 2. Provide strawberry Ensure Plus TID post-op once diet order allows Nutrition Monitoring: Energy Intake Electrolyte and Renal Profile Gastrointestinal Profile Comment f/u; 07/01 add strawberry ensure plus if diet order allows formal f/u 07/02 Discharge Assessment Start: 06/28/16 22: 06 Freq: Status: Discharge Document 07/01/16 16:24 AYW (Rec: 07/01/16 16:28 AYW [id number]) Discharge Assessment Discharge Disposition Detention Facility Mode of Discharge Ambulance/EMS Accompanied By Ambulance Personnel Belongings sent with patient Yes Summary of Care Provided Yes: to ECF Patient was provided information on Yes accessing patient portal Level Of Consciousness Alert Disoriented Eating (Feeding) Ability Total Assistance Bathing Ability 2 Person Assist Upper Body Dressing Ability Total Assistance Lower Body Dressing Ability Total Assistance Ambulation Ability 2 Person Assist Toileting Ability Total Assistance Bowel Incontinent Bladder Incontinent Has Patient Been in Isolation During No Hospital Stay Doctor's Appointment Made No Referrals Made Yes Patient Education Given Yes Discharge Instructions Given To Primary Retail Beauty Specialist Discharge Instructions Address Activity Diet Weight Measures Medications Symptoms Worsening Follow Up Labs Problems Prescriptions Given To Primary Retail Beauty Specialist Was patient discharged on Warfarin for No confirmed VTE diagnosis? Was patient discharged with diagnosis of No ischemic or hemmorrhagic stroke? Flu Vaccine Given No Reason Flu Vaccine Not Given Previously Received Current Flu Season Vaccine administration documented on No EMAR Nursing Summary Patient admitted s/p fall with right hip fracture - Fracture is not operable - Patient returning to [facility]CF with orders for weigt bearing and activity as ordered Education, UTI signs and symptoms Start: 06/28/16 22: 54 Freq: Status: Complete Document 07/01/16 16:29 AYW (Rec: 07/01/16 16:36 AYW [id number]) Education, urinary catheter care Start: 06/28/16 22: 54 Freq: Status: Complete Document 07/01/16 16:29 AYW (Rec: 07/01/16 16:36 AYW [id number]) Efforts to Communicate Start: 06/29/16 11: 37 Freq: Status: Complete Document 07/01/16 16:29 AYW (Rec: 07/01/16 16:36 AYW [id number]) Encourage Family Participation Start: 06/29/16 11: 37 Freq: Status: Complete Document 07/01/16 16:29 AYW (Rec: 07/01/16 16:36 AYW [id number]) Environmental safety management Start: 06/30/16 05: 06 Freq: Status: Complete Document 07/01/16 16:29 AYW (Rec: 07/01/16 16:36 AYW [id number]) Fall Precautions Acute Start: 06/28/16 22: 30 Freq: Q12H Status: Discharge Document 06/28/16 23:37 SML (Rec: 06/28/16 23:47 SML [id number]) [facility] Fall Risk Assessment Tool High Fall Risk-Implement High Fall Risk History of more than one fall interventions per protocol within 6 months before admission Fall Risk Category High Risk Fall Risk Interventions Low Risk Interventions Bed in lowest position Top side rails up x 2 Secure brake on bed Use properly fitting non-skid footwear Call light and frequently needed objects within reach Encourage patients/families to call for assistance when needed Fall education including risk assessment, injury risk and routine/ Inspect environment for safety and communication risk Supervise and assist with toileting/ADLs as needed Moderate Risk Interventions Institue fall-risk tooklit ( yellow flag, yellow non-skid socks and Frequent reorientation for confused patients High Risk Interventions Remain with patient while toileting Activate bed/chair exit Move patient to room with best visual access Document 06/29/16 08:51 CNB (Rec: 06/29/16 08:51 CNB [id number]) [facility] Fall Risk Assessment Tool High Fall Risk-Implement High Fall Risk History of more than one fall interventions per protocol within 6 months before admission Fall Risk Category High Risk Fall Risk Interventions Low Risk Interventions Bed in lowest position Top side rails up x 2 Secure brake on bed Use properly fitting non-skid footwear Call light and frequently needed objects within reach Encourage patients/families to call for assistance when needed Fall education including risk assessment, injury risk and routine/ Inspect environment for safety and communication risk Supervise and assist with toileting/ADLs as needed Moderate Risk Interventions Institue fall-risk tooklit ( yellow flag, yellow non-skid socks and Frequent reorientation for confused patients High Risk Interventions Remain with patient while toileting Activate bed/chair exit Move patient to room with best visual access Obtain pharmacy consult for review of medications Obtain PT consult, if pat Document 06/29/16 22:15 TGJ (Rec: 06/29/16 22:35 TGJ [id number]) [facility] Fall Risk Assessment Tool High Fall Risk-Implement High Fall Risk History of more than one fall interventions per protocol within 6 months before admission Fall Risk Category High Risk Fall Risk Interventions Low Risk Interventions Bed in lowest position Top side rails up x 2 Secure brake on bed Use properly fitting non-skid footwear Call light and frequently needed objects within reach Encourage patients/families to call for assistance when needed Fall education including risk assessment, injury risk and routine/ Inspect environment for safety and communication risk Supervise and assist with toileting/ADLs as needed High Risk Interventions Remain with patient while toileting Activate bed/chair exit Move patient to room with best visual access Document 06/30/16 09:30 CNB (Rec: 06/30/16 09:30 CNB [id number]) [facility] Fall Risk Assessment Tool High Fall Risk-Implement High Fall Risk History of more than one fall interventions per protocol within 6 months before admission Fall Risk Category High Risk Fall Risk Interventions Low Risk Interventions Bed in lowest position Top side rails up x 2 Secure brake on bed Use properly fitting non-skid footwear Call light and frequently needed objects within reach Encourage patients/families to call for assistance when needed Fall education including risk assessment, injury risk and routine/ Inspect environment for safety and communication risk Supervise and assist with toileting/ADLs as needed Moderate Risk Interventions Institue fall-risk tooklit ( yellow flag, yellow non-skid socks and Frequent reorientation for confused patients High Risk Interventions Remain with patient while toileting Activate bed/chair exit Move patient to room with best visual access Obtain PT consult, if pat Document 06/30/16 22:31 LEXA (Rec: 06/30/16 22:44 LEXA [id number]) [facility] Fall Risk Assessment Tool Low Fall Risk-Implement Low Fall Risk Complete paralysis or interventions per protocol completely immobolized Fall Risk Category Low Risk Fall Risk Interventions Low Risk Interventions Bed in lowest position Top side rails up x 2 Secure brake on bed Use properly fitting non-skid footwear Call light and frequently needed objects within reach Encourage patients/families to call for assistance when needed Fall education including risk assessment, injury risk and routine/ Inspect environment for safety and communication risk Supervise and assist with toileting/ADLs as needed Document 07/01/16 09:50 KARINA (Rec: 07/01/16 11:41 KARINA [id number]) [facility] Fall Risk Assessment Tool High Fall Risk-Implement High Fall Risk History of more than one fall interventions per protocol within 6 months before admission Fall Risk Category High Risk Fall Risk Interventions Low Risk Interventions Bed in lowest position Top side rails up x 2 Secure brake on bed Use properly fitting non-skid footwear Call light and frequently needed objects within reach Encourage patients/families to call for assistance when needed Fall education including risk assessment, injury risk and routine/ Inspect environment for safety and communication risk Supervise and assist with toileting/ADLs as needed Moderate Risk Interventions Institue fall-risk tooklit ( yellow flag, yellow non-skid socks and High Risk Interventions Remain with patient while toileting Activate bed/chair exit Move patient to room with best visual access Obtain pharmacy consult for review of medications Obtain PT consult, if pat Flu Vaccine Screen Start: 06/28/16 22: 06 Freq: Status: Discharge Document 07/01/16 16:24 AYW (Rec: 07/01/16 16:28 AYW [id number]) Flu Vaccine Screen Influenza vaccine indications 6 months of age or older Resident of a retirement or chronic care facility Flu Vaccine Contraindications Previously Received Current Flu Season Vaccine Information Sheet Given(Version Yes 12/13/2014) Patient meets criteria for vaccination No and consents to receive it Hygiene activity Start: 06/28/16 22: 30 Freq: .PRN Status: Discharge Document 06/29/16 09:39 AWE (Rec: 06/29/16 09:39 AWE [id number]) Hygiene Bath Type Full Bed Bath Bathing Ability 2 Person Assist [place] Completed By Staff Linen Change Complete Other Hygiene Hair Washed Document 06/30/16 14:53 BMP (Rec: 06/30/16 14:53 BMP [id number]) Hygiene Bath Type Partial Bed Bath Bathing Ability 1 Person Assist Family/Caregiver Assist [place] Completed By Staff Linen Change Complete IV-Invasive Line Management Start: 06/28/16 22: 30 Freq: Q4H Status: Discharge Document 06/28/16 23:37 SML (Rec: 06/28/16 23:47 SML [id number]) IV/Invasive Line Assessment Left Antecubital Date of Insertion 06/28/16 Reason for Line Insertion/Rationale for Provide Access for IV Insertion Medication(s) Gauge (gauge) 20 IV Catheter Type Peripheral IV Site Observation Patent [place] Dressing Applied Transparent Dressing Line Care P-Locked Labs drawn from Line* No Document 06/29/16 06:24 ITC (Rec: 06/29/16 06:27 ITC [id number]) IV/Invasive Line Assessment Left Antecubital Reason for Line Insertion/Rationale for Replace Lost Fluids Insertion Provide Access for IV Medication(s) Provide Access for Emergency Gauge (gauge) 20 IV Catheter Type Peripheral IV Site Observation Patent Site Observation Intervention Inspected Line Dressing Applied Transparent Dressing Dry/Intact Labs drawn from Line* No Document 06/29/16 08:50 CNB (Rec: 06/29/16 08:51 CNB [id number]) IV/Invasive Line Assessment Left Antecubital Reason for Line Insertion/Rationale for Provide Access for IV Insertion Medication(s) Provide Access for Emergency Comment 0.9 at 50 infusing Gauge (gauge) 20 IV Catheter Type Peripheral IV Site Observation Patent [place] Dressing Applied Transparent Dressing Dry/Intact Document 06/29/16 13:43 CNB (Rec: 06/29/16 13:43 CNB [id number]) IV/Invasive Line Assessment Left Antecubital Reason for Line Insertion/Rationale for Provide Access for IV Insertion Medication(s) Provide Access for Emergency Comment 0.9 infusing at 50 Gauge (gauge) 20 IV Catheter Type Peripheral IV Site Observation Patent [place] Dressing Applied Transparent Dressing Dry/Intact Document 06/29/16 22:15 TGJ (Rec: 06/29/16 22:47 TGJ [id number]) IV/Invasive Line Assessment Left Antecubital Reason for Line Insertion/Rationale for Provide Access for IV Insertion Medication(s) Provide Access for Emergency Comment 0.9 infusing at 50 Gauge (gauge) 20 IV Catheter Type Peripheral IV Site Observation Patent [place] Dressing Applied Window Dressing Transparent Dressing Dry/Intact Labs drawn from Line* No Document 06/30/16 00:57 TGJ (Rec: 06/30/16 01:30 TGJ [id number]) IV/Invasive Line Assessment Left Antecubital Reason for Line Insertion/Rationale for Provide Access for IV Insertion Medication(s) Provide Access for Emergency Comment 0.9 infusing at 50 Gauge (gauge) 20 IV Catheter Type Peripheral IV Site Observation Patent [place] Dressing Applied Window Dressing Transparent Dressing Dry/Intact Document 06/30/16 03:21 TGJ (Rec: 06/30/16 03:22 TGJ [id number]) IV/Invasive Line Assessment Left Antecubital Reason for Line Insertion/Rationale for Provide Access for IV Insertion Medication(s) Provide Access for Emergency Comment 0.9 infusing at 50 Gauge (gauge) 20 IV Catheter Type Peripheral IV Site Observation Patent [place] Dressing Applied Window Dressing Transparent Dressing Dry/Intact Document 06/30/16 08:00 HBD (Rec: 06/30/16 10:37 HBD [id number]) IV/Invasive Line Assessment Left Antecubital Reason for Line Insertion/Rationale for Provide Access for IV Insertion Medication(s) Gauge (gauge) 20 IV Catheter Type Peripheral IV Site Observation Patent Dressing Applied Transparent Dressing Document 06/30/16 09:30 CNB (Rec: 06/30/16 09:31 CNB [id number]) IV/Invasive Line Assessment Left Antecubital Reason for Line Insertion/Rationale for Provide Access for IV Insertion Medication(s) Provide Access for Emergency Gauge (gauge) 20 IV Catheter Type Peripheral IV Site Observation Patent [place] Dressing Applied Transparent Dressing Dry/Intact Document 06/30/16 13:07 CNB (Rec: 06/30/16 13:07 CNB [id number]) IV/Invasive Line Assessment Date IV Line Discontinued 06/30/16 Time IV Line Discontinued 13:07 IV Line Discontinue Reason Patient pulled out. IV Line Removal Patient Tolerance IV removed/ tip intact Bleeding Controlled Expresses Understanding Document 06/30/16 17:32 CNB (Rec: 06/30/16 17:33 CNB [id number]) IV/Invasive Line Assessment Right Forearm Reason for Line Insertion/Rationale for Provide Access for IV Insertion Medication(s) Provide Access for Emergency Comment [id number] at 75 Gauge (gauge) 22 IV Catheter Type Peripheral IV Site Observation Patent [place] Document 06/30/16 18:14 CNB (Rec: 06/30/16 18:15 CNB [id number]) IV/Invasive Line Assessment Left Forearm Reason for Line Insertion/Rationale for Provide Access for IV Insertion Medication(s) Provide Access for Emergency Gauge (gauge) 22 IV Catheter Type Peripheral IV Site Observation Patent [place] Dressing Applied Transparent Dressing Dry/Intact Line Care Saline Flush P-Locked Date IV Line Discontinued 06/30/16 Time IV Line Discontinued 18:15 IV Line Discontinue Reason Patient pulled out IV Line Removal Patient Tolerance IV removed/ tip intact Bleeding Controlled Document 06/30/16 22:31 LEXA (Rec: 06/30/16 22:44 LEXA [id number]) IV/Invasive Line Assessment Left Forearm Reason for Line Insertion/Rationale for Replace Lost Fluids Insertion Maintain Electrolyte Balance Provide Access for IV Medication(s) Provide Access for Blood Provide Access for Emergency Gauge (gauge) 22 IV Catheter Type Peripheral IV Site Observation Patent Site Observation Intervention Inspected Line Dressing Applied Window Dressing Dry/Intact Line Care Saline Flush Labs drawn from Line* No Document 07/01/16 05:04 LEXA (Rec: 07/01/16 05:09 LEXA [id number]) IV/Invasive Line Assessment Left Forearm Reason for Line Insertion/Rationale for Replace Lost Fluids Insertion Maintain Electrolyte Balance Provide Access for IV Medication(s) Provide Access for Blood Provide Access for Emergency Gauge (gauge) 22 IV Catheter Type Peripheral IV Site Observation Patent Site Observation Intervention Inspected Line Dressing Applied Window Dressing Dry/Intact Line Care Saline Flush Labs drawn from Line* No Document 07/01/16 09:50 KARINA (Rec: 07/01/16 11:41 KARINA [id number]) IV/Invasive Line Assessment Left Forearm Reason for Line Insertion/Rationale for Replace Lost Fluids Insertion Maintain Electrolyte Balance Provide Access for IV Medication(s) Provide Access for Blood Provide Access for Emergency Gauge (gauge) 22 IV Catheter Type Peripheral IV Site Observation Patent Site Observation Intervention Inspected Line Dressing Applied Dry/Intact Labs drawn from Line* No Document 07/01/16 12:24 AYW (Rec: 07/01/16 12:24 AYW [id number]) IV/Invasive Line Assessment Left Forearm Reason for Line Insertion/Rationale for Replace Lost Fluids Insertion Maintain Electrolyte Balance Provide Access for IV Medication(s) Provide Access for Blood Provide Access for Emergency Gauge (gauge) 22 IV Catheter Type Peripheral IV Site Observation Patent Site Observation Intervention Inspected Line Dressing Applied Dry/Intact Line Care Saline Flush Document 07/01/16 16:39 AYW (Rec: 07/01/16 16:39 AYW [id number]) IV/Invasive Line Assessment Left Forearm Reason for Line Insertion/Rationale for Replace Lost Fluids Insertion Maintain Electrolyte Balance Provide Access for IV Medication(s) Provide Access for Blood Provide Access for Emergency Gauge (gauge) 22 IV Catheter Type Peripheral IV Site Observation Patent Site Observation Intervention Inspected Line Dressing Applied Dry/Intact Line Care Saline Flush Document 07/01/16 17:32 AYW (Rec: 07/01/16 17:33 AYW [id number]) IV/Invasive Line Assessment Left Forearm Site Observation Intervention IV Removed by Provider Date IV Line Discontinued 07/01/16 Time IV Line Discontinued 17:32 IV Line Discontinue Reason patient discharging Condition of IV Line Removed tip intact IV Line Removal Patient Tolerance Tolerated Well Sterile Dressing Applied IV removed/ tip intact Bleeding Controlled Education Completed Infection risk assessment Start: 06/28/16 22: 54 Freq: Status: Complete Document 07/01/16 16:29 AYW (Rec: 07/01/16 16:36 AYW [id number]) Initial Patient Assessment Start: 06/28/16 22: 30 Freq: .ONCE Status: Discharge Document 06/28/16 22:53 SML (Rec: 06/28/16 23:25 SML [id number]) General Questions Date of Arrival on Unit 06/28/16 Time of Arrival on Unit 22:30 Admitted From Direct Admit Chief Complaint Right hip pain History Provided By Family Member Emergency Contact Name Lincoln Cerda Relationship to Patient Son Emergency Contact Phone Number [phone] Bands applied ID band Allergy band Patient Health Portal Patient was provided information on Yes accessing patient portal Patient Requests Portal Enrollment No Reason No Portal Enrollment Patient Already Enrolled Malnutrition Screening Tool (MST) Have You Recently Lost Weight Without No Trying Advance Directives Advance Directives Yes Advance Directives Information Provided Yes Advance Directives on File No: Requested from son "Lincoln" Living Will No Power of Research Analyst Yes Power of Research Analyst Name Lincoln Cerda Power of Research Analyst Patient Rights Copy of Rights Given and Verbalizes Yes Understanding Incapacitated Patient Copy of Rights Lincoln Cerda Given to Tobacco Free [place]: Copy of AHS Yes Statement Given and Patient Verbalizes Understanding Communication Ability Primary Language Nepali Preferred Language Nepali Shank Boner Required No Ability to Follow Directions Fair Able to Read No Able to Write No Communication Tools None Caregiver Communication Skills No Impairment Impairment Hearing Ability Hard of Hearing Visual Assistive Devices Glasses Pain Assessment Do You Have Any Ongoing (Chronic) Pain No Problems Educated on Pain Scale Yes Past Medical History Medical history dementia hyperlipidemia hypertension osteoporosis thyroid disease Additional medical history Legally blind, Mac. deg., [place], Non-verbal, and Hypokalemia Psychiatric history depression Smoking Status Unknown if ever smoked Smokeless Tobacco Status No Alcohol use none Drug use none Occupational status disabled Current living situation ECF Activity level Uses cane/walker Wheelchair bound Mostly sedentary Recent Out of Country Travel Within the No Last 8 Weeks Exposure or Possible Exposure to Illness No During Travel Family History-Meaningful Use Father Living Status Hx Family Cardiac Disorders Yes Hx Family Respiratory Disorders Yes Hx Family Cancer Yes Hx Family GI Disorders No Hx Family Genitourinary Disorders No Hx Family Endocrine Disorder Yes Hx Family Musculoskeletal Disorders No Hx Family Neuromuscular Disorders No Hx Family Neurologic Disorders No Hx Family HEENT Disorders No Hx Family Autoimmune Disorders No Hx Family Reproductive Disorders No Hx Family Psychosocial Disorders No Hx Family Medical Disorders No Spiritual Needs Spiritual Referral None Psychosocial Over Age 75 and Lives Alone or Over Age Yes 80 Potential Need for Follow-up Care (ECF, Yes Home Health, ECT) Developmentally Disabled or History of No 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 Need or No Terminal Implications Responsible for Care of Others No Financial Concerns No Suspected Abuse or Neglect No Suicidal or Homicidal Ideation No Social Service Consult Needed Yes Functional Assessment Employment Status Disabled Eating (Feeding) Ability Total Assistance Bathing Ability Maximum Assistance Total Assistance Upper Body Dressing Ability Total Assistance Lower Body Dressing Ability Total Assistance Ambulation Ability Modified Independent Moderate Assistance Toileting Ability Total Assistance Bladder Incontinent Bowel Incontinent Normal Bowel Pattern unknown Intake and Output, Strict Start: 06/28/16 22: 30 Freq: Q8H Status: Discharge Document 06/29/16 13:56 AWE (Rec: 06/29/16 13:57 AWE [id number]) Intake and Output Intake, Oral Amount 0 Meal Lunch Percent of Meal Consumed 0% Catheter 350 Urine Color Dark Yellow Document 06/30/16 00:57 TGJ (Rec: 06/30/16 01:30 TGJ [id number]) Intake and Output Intake, Oral Amount 25 Catheter 130 Urine Color Dark Yellow Document 07/01/16 17:32 AYW (Rec: 07/01/16 17:33 AYW [id number]) Intake and Output Number of Urine Diapers 1 Measure intake and output Start: 06/29/16 02: 00 Freq: QSHIFT Status: Discharge Document 06/29/16 22:15 TGJ (Rec: 06/29/16 22:35 TGJ [id number]) Intake and Output Intake, Oral Amount 50 Urine Color Dark Yellow Document 06/30/16 00:57 TGJ (Rec: 06/30/16 01:30 TGJ [id number]) Document 07/01/16 11:35 NKP (Rec: 07/01/16 11:35 NKP [id number]) Intake and Output Catheter 550 Urine Color Tea Colored Measure weight Start: 06/28/16 22: 30 Freq: Status: Discharge Document 06/28/16 22:52 SML (Rec: 06/28/16 22:52 SML [id number]) Height and Weight Height 1.55 m Weight 53.6 kg Weight Measurement Method Built in [facility] Body Mass Index (BMI) 22.29 BMI Classification Normal Document 06/28/16 22:52 JMP (Rec: 06/28/16 22:54 JMP [id number]) Height and Weight Weight 56.3 kg Weight Measurement Method Built in [facility] Med Rec Tech Start: 06/29/16 09: 45 Freq: Status: Discharge Document 06/29/16 09:45 TLH (Rec: 06/29/16 09:45 [facility] [id number]) Pharmacy Med Rec Tech Home Medicatons Reconciled? Yes Was this to catch up from previous day No Does patient take 10 or more medications Yes ? Does patient request medication No education Do home meds include Coumadin, Xarelto, No Pradaxa, Eliquis Added Patient Preferred Pharmacy Yes Verified Allergies Yes Would Patient Like to use [place] Out No Patient Pharmacy OT Missed Visit Start: 06/29/16 07: 40 Freq: Status: Discharge Document 06/29/16 07:40 LLN (Rec: 06/29/16 07:41 LLN [id number]) Missed Visit Missed Visit Reason Awaiting ortho consult Comment Patient awaiting ortho consult will hold at this time and follow-up. Document 06/30/16 07:50 TNB (Rec: 06/30/16 07:51 TNB [id number]) Missed Visit Missed Visit Reason Medical Hold Comment per hospitalist notes, family wanting to meet with orthopedic surgeon to discuss risk vs benefits for surgery. Will await decision to determine if surgery is appropriate for patient before OT eval performed. Occupational Therapy Screen Start: 07/01/16 14: 45 Freq: Status: Discharge Document 07/01/16 14:45 TNB (Rec: 07/01/16 14:47 TNB [id number]) Rehab Screen Reason for Screen Not a Skilled Rehab Candidate Comment Received OT consult. Pt not appropriate for PT/OT evaluation at this time. Pt unable arouse and follow 1 step commands to actively participate in evalution. Per RN, family member reports Pt spent most of her days sleeping in bed. Will d/c OT order. Pt planned to d/c back to [facility] today or tomorrow. Is patient being assessed for No rehabilitation for diagnosis of stroke? Oxygen administration Start: 06/28/16 22: 30 Freq: Q12H Status: Complete Document 06/29/16 06:33 ITC (Rec: 06/29/16 06:34 ITC [id number]) Oxygen Heart rate 92 O2 Sat by Pulse Oximetry (95-100) 95 Oxygen Delivery Method Room Air Document 06/29/16 22:15 TGJ (Rec: 06/29/16 22:47 TGJ [id number]) Oxygen Oxygen Delivery Method Room Air Document 06/30/16 22:31 LEXA (Rec: 06/30/16 22:44 LEXA [id number]) Oxygen Oxygen Delivery Method Room Air PT Missed Visit Start: 06/29/16 08: 40 Freq: Status: Discharge Document 06/29/16 08:40 RLM (Rec: 06/29/16 08:40 RLM [id number]) Missed Visit Missed Visit Reason Awaiting ortho consult Comment Patient awaiting ortho consult will hold at this time and follow-up. Document 06/30/16 08:07 LJS (Rec: 06/30/16 08:07 LJS [id number]) Missed Visit Missed Visit Reason Medical Hold Comment per hospitalist notes, family wanting to meet with orthopedic surgeon to discuss risk vs benefits for surgery. Will await decision to determine if surgery is appropriate for patient before PT eval performed. Document 07/01/16 15:13 AGK (Rec: 07/01/16 15:15 AGK [id number]) Missed Visit Comment Pt is not appropriate for skilled PT services at this time. See OT screen for details. Patient Belongings Start: 06/28/16 22: 30 Freq: .ONCE Status: Discharge Document 06/28/16 22:53 SML (Rec: 06/28/16 23:25 SML [id number]) Patient Belongings Belongings With Patient on Admission No Patient Rounding Start: 06/28/16 22: 30 Freq: Q1H Status: Discharge Document 06/28/16 23:37 SML (Rec: 06/28/16 23:47 SML [id number]) Hourly Rounding Hourly Rounding Checked for Patient Positioning Patient Personal Items Placed Within Reach Checked Patient Pain Level Hourly Rounding Completed Yes Patient Awake Is family present? Yes: Son Comment pt non-verbal Safety Call Light Within Reach Bed Position Low Bed Exit Alarm Fall Precautions Phone Within Reach Bed Brake On Side Rails Up X2 Are the Floors Free From Trip Hazards? Yes Is the Room Free From Clutter? Yes Turn and Postion Bedrest Yes Turn Q 2HR No Patient Position Right Side Document 06/28/16 23:59 [facility] (Rec: 06/28/16 23:59 [facility] [id number]) Hourly Rounding Hourly Rounding Checked for Patient Positioning Patient Personal Items Placed Within Reach Hourly Rounding Completed Yes Patient Sleeping Is family present? No Safety Call Light Within Reach Bed Position Low Bed Exit Alarm Fall Precautions Phone Within Reach Bed Brake On Side Rails Up X2 Are the Floors Free From Trip Hazards? Yes Is the Room Free From Clutter? Yes Turn and Postion Bedrest No Turn Q 2HR No Patient Position Right Side Document 06/29/16 02:48 ITC (Rec: 06/29/16 02:49 ITC [id number]) Hourly Rounding Hourly Rounding Checked for Patient Positioning Patient Personal Items Placed Within Reach Checked Patient Pain Level Hourly Rounding Completed Yes Patient Resting With Eyes Closed Is family present? No Safety Call Light Within Reach Bed Position Low Bed Exit Alarm Fall Precautions Phone Within Reach Bed Brake On Side Rails Up X2 Are the Floors Free From Trip Hazards? Yes Is the Room Free From Clutter? Yes Turn and Postion Bedrest No Turn Q 2HR No Patient Position Right Side Document 06/29/16 04:00 [facility] (Rec: 06/29/16 04:58 [facility] [id number]) Hourly Rounding Hourly Rounding Checked for Patient Positioning Patient Personal Items Placed Within Reach Checked Patient Pain Level Hourly Rounding Completed Yes Patient Sleeping Is family present? No Safety Call Light Within Reach Bed Position Low Bed Exit Alarm Fall Precautions Phone Within Reach Bed Brake On Side Rails Up X2 Are the Floors Free From Trip Hazards? Yes Is the Room Free From Clutter? Yes Turn and Postion Bedrest Yes Turn Q 2HR No Patient Position Right Side Document 06/29/16 06:24 ITC (Rec: 06/29/16 06:27 ITC [id number]) Hourly Rounding Hourly Rounding Checked for Patient Positioning Patient Personal Items Placed Within Reach Checked Patient Pain Level Hourly Rounding Completed Yes Patient Awake Safety Call Light Within Reach Bed Position Low Bed Exit Alarm Fall Precautions Phone Within Reach Bed Brake On Side Rails Up X2 Are the Floors Free From Trip Hazards? Yes Is the Room Free From Clutter? Yes Turn and Postion Bedrest Yes Turn Q 2HR No Patient Position Right Side Document 06/29/16 07:35 CNB (Rec: 06/29/16 07:35 CNB [id number]) Hourly Rounding Hourly Rounding Checked for Patient Positioning Patient Personal Items Placed Within Reach Checked Patient Pain Level Hourly Rounding Completed Yes Patient Awake Is family present? No Safety Call Light Within Reach Bed Position Low Bed Exit Alarm Fall Precautions Phone Within Reach Bed Brake On Side Rails Up X2 Are the Floors Free From Trip Hazards? Yes Is the Room Free From Clutter? Yes Turn and Postion Bedrest Yes Turn Q 2HR No Patient Position Sitting up in Bed Document 06/29/16 09:24 CNB (Rec: 06/29/16 09:24 CNB [id number]) Hourly Rounding Hourly Rounding Checked for Patient Positioning Patient Personal Items Placed Within Reach Checked Patient Pain Level Hourly Rounding Completed Yes Patient Awake Is family present? No Safety Call Light Within Reach Bed Position Low Bed Exit Alarm Fall Precautions Phone Within Reach Bed Brake On Side Rails Up X3 Are the Floors Free From Trip Hazards? Yes Is the Room Free From Clutter? Yes Turn and Postion Bedrest Yes Turn Q 2HR No Patient Position Sitting up in Bed Document 06/29/16 11:16 CNB (Rec: 06/29/16 11:16 CNB [id number]) Hourly Rounding Hourly Rounding Checked for Patient Positioning Patient Personal Items Placed Within Reach Checked Patient Pain Level Hourly Rounding Completed Yes Patient Sleeping Is family present? No Safety Call Light Within Reach Bed Position Low Bed Exit Alarm Fall Precautions Phone Within Reach Bed Brake On Side Rails Up X2 Are the Floors Free From Trip Hazards? Yes Is the Room Free From Clutter? Yes Turn and Postion Bedrest Yes Turn Q 2HR No Patient Position Sitting up in Bed Document 06/29/16 12:25 CNB (Rec: 06/29/16 12:25 CNB [id number]) Hourly Rounding Hourly Rounding Checked for Patient Positioning Patient Personal Items Placed Within Reach Checked Patient Pain Level Hourly Rounding Completed Yes Patient Sleeping Is family present? No Safety Call Light Within Reach Bed Position Low Bed Exit Alarm Fall Precautions Phone Within Reach Bed Brake On Side Rails Up X3 Are the Floors Free From Trip Hazards? Yes Is the Room Free From Clutter? Yes Turn and Postion Bedrest Yes Turn Q 2HR No Patient Position Sitting up in Bed Document 06/29/16 13:42 CNB (Rec: 06/29/16 13:42 CNB [id number]) Hourly Rounding Hourly Rounding Checked for Patient Positioning Patient Personal Items Placed Within Reach Checked Patient Pain Level Hourly Rounding Completed Yes Patient Awake Is family present? No Safety Call Light Within Reach Bed Position Low Bed Exit Alarm Fall Precautions Phone Within Reach Bed Brake On Side Rails Up X2 Are the Floors Free From Trip Hazards? Yes Is the Room Free From Clutter? Yes Turn and Postion Bedrest Yes Turn Q 2HR No Patient Position Sitting up in Bed Document 06/29/16 15:23 CNB (Rec: 06/29/16 15:23 CNB [id number]) Hourly Rounding Hourly Rounding Checked for Patient Positioning Patient Personal Items Placed Within Reach Checked Patient Pain Level Hourly Rounding Completed Yes Patient Awake Is family present? Yes Safety Call Light Within Reach Bed Position Low Bed Exit Alarm Fall Precautions Phone Within Reach Bed Brake On Side Rails Up X2 Are the Floors Free From Trip Hazards? Yes Is the Room Free From Clutter? Yes Turn and Postion Bedrest Yes Turn Q 2HR No Patient Position Right Side Document 06/29/16 15:53 CNB (Rec: 06/29/16 15:53 CNB [id number]) Hourly Rounding Hourly Rounding Checked for Patient Positioning Patient Personal Items Placed Within Reach Checked Patient Pain Level Hourly Rounding Completed Yes Patient Awake Is family present? Yes Comment Telemetry reapplied at this time Safety Call Light Within Reach Bed Position Low Bed Exit Alarm Fall Precautions Phone Within Reach Bed Brake On Side Rails Up X2 Are the Floors Free From Trip Hazards? Yes Is the Room Free From Clutter? Yes Turn and Postion Bedrest Yes Turn Q 2HR No Patient Position Right Side Document 06/29/16 16:55 CNB (Rec: 06/29/16 16:55 CNB [id number]) Hourly Rounding Hourly Rounding Checked for Patient Positioning Patient Personal Items Placed Within Reach Checked Patient Pain Level Hourly Rounding Completed Yes Patient Awake Is family present? Yes Safety Call Light Within Reach Bed Position Low Bed Exit Alarm Fall Precautions Phone Within Reach Bed Brake On Side Rails Up X2 Are the Floors Free From Trip Hazards? Yes Is the Room Free From Clutter? Yes Turn and Postion Bedrest Yes Turn Q 2HR No Patient Position Sitting up in Bed Document 06/29/16 18:33 CNB (Rec: 06/29/16 18:34 CNB [id number]) Hourly Rounding Hourly Rounding Checked for Patient Positioning Patient Personal Items Placed Within Reach Checked Patient Pain Level Patient Awake Is family present? Yes Safety Call Light Within Reach Bed Position Low Bed Exit Alarm Fall Precautions Phone Within Reach Bed Brake On Side Rails Up X2 Are the Floors Free From Trip Hazards? Yes Is the Room Free From Clutter? Yes Turn and Postion Bedrest No Turn Q 2HR No Patient Position Sitting up in Bed Document 06/29/16 22:15 TGJ (Rec: 06/29/16 22:47 TGJ [id number]) Hourly Rounding Hourly Rounding Checked for Patient Positioning Patient Personal Items Placed Within Reach Hourly Rounding Completed Yes Patient Sleeping Is family present? No Safety Call Light Within Reach Bed Position Low Bed Exit Alarm Fall Precautions Phone Within Reach Bed Brake On Side Rails Up X2 Are the Floors Free From Trip Hazards? Yes Is the Room Free From Clutter? Yes Turn and Postion Bedrest Yes Turn Q 2HR No Patient Position Right Side Positioning Aides Pillows Document 06/30/16 00:57 TG (Rec: 06/30/16 01:30 TG [id number]) Hourly Rounding Hourly Rounding Checked for Patient Positioning Patient Personal Items Placed Within Reach Hourly Rounding Completed Yes Patient Sleeping Is family present? No Safety Call Light Within Reach Bed Position Low Bed Exit Alarm Fall Precautions Phone Within Reach Bed Brake On Side Rails Up X2 Are the Floors Free From Trip Hazards? Yes Is the Room Free From Clutter? Yes Turn and Postion Bedrest No Turn Q 2HR No Patient Position Right Side Positioning Aides Pillows Document 06/30/16 02:00 [facility] (Rec: 06/30/16 02:32 [facility] [id number]) Hourly Rounding Hourly Rounding Checked for Patient Positioning Patient Personal Items Placed Within Reach Hourly Rounding Completed Yes Patient Sleeping Is family present? No Safety Call Light Within Reach Bed Position Low Bed Exit Alarm Fall Precautions Phone Within Reach Bed Brake On Side Rails Up X2 Are the Floors Free From Trip Hazards? Yes Is the Room Free From Clutter? Yes Document 06/30/16 03:21 TGJ (Rec: 06/30/16 03:22 TGJ [id number]) Hourly Rounding Hourly Rounding Checked for Patient Positioning Patient Personal Items Placed Within Reach Checked Patient Pain Level Hourly Rounding Completed Yes Patient Sleeping Is family present? No Safety Call Light Within Reach Bed Position Low Bed Exit Alarm Fall Precautions Phone Within Reach Bed Brake On Side Rails Up X2 Are the Floors Free From Trip Hazards? Yes Is the Room Free From Clutter? Yes Turn and Postion Bedrest Yes Turn Q 2HR No Patient Position Back Positioning Aides Pillows Document 06/30/16 07:01 CNB (Rec: 06/30/16 07:02 CNB [id number]) Hourly Rounding Hourly Rounding Checked for Patient Positioning Patient Personal Items Placed Within Reach Checked Patient Pain Level Hourly Rounding Completed Yes Patient Awake Is family present? No Safety Call Light Within Reach Bed Position Low Bed Exit Alarm Fall Precautions Phone Within Reach Side Rails Up X2 Are the Floors Free From Trip Hazards? Yes Is the Room Free From Clutter? Yes Turn and Postion Bedrest Yes Turn Q 2HR No Patient Position Sitting up in Bed Document 06/30/16 08:00 HBD (Rec: 06/30/16 10:38 HBD [id number]) Hourly Rounding Hourly Rounding Checked for Patient Positioning Patient Personal Items Placed Within Reach Checked Patient Pain Level Hourly Rounding Completed Yes Patient Sleeping Is family present? No Safety Call Light Within Reach Bed Position Low Bed Exit Alarm Fall Precautions Phone Within Reach Bed Brake On Side Rails Up X2 Are the Floors Free From Trip Hazards? Yes Is the Room Free From Clutter? Yes Turn and Postion Bedrest Yes Patient Position Sitting up in Bed Document 06/30/16 09:26 CNB (Rec: 06/30/16 09:27 CNB [id number]) Hourly Rounding Hourly Rounding Checked for Patient Positioning Patient Personal Items Placed Within Reach Checked Patient Pain Level Hourly Rounding Completed Yes Patient Sleeping Is family present? No Safety Call Light Within Reach Bed Position Low Bed Exit Alarm Fall Precautions Phone Within Reach Side Rails Up X2 Are the Floors Free From Trip Hazards? Yes Is the Room Free From Clutter? Yes Turn and Postion Bedrest Yes Turn Q 2HR No Patient Position Sitting up in Bed Document 06/30/16 11:46 CNB (Rec: 06/30/16 11:47 CNB [id number]) Hourly Rounding Hourly Rounding Checked for Patient Positioning Patient Personal Items Placed Within Reach Hourly Rounding Completed Yes Patient Awake Is family present? No Safety Call Light Within Reach Bed Position Low Bed Exit Alarm Fall Precautions Phone Within Reach Side Rails Up X2 Are the Floors Free From Trip Hazards? Yes Is the Room Free From Clutter? Yes Turn and Postion Bedrest Yes Turn Q 2HR No Patient Position Sitting up in Bed Document 06/30/16 13:05 CNB (Rec: 06/30/16 13:05 CNB [id number]) Hourly Rounding Hourly Rounding Checked for Patient Positioning Patient Personal Items Placed Within Reach Hourly Rounding Completed Yes Patient Awake Is family present? No Safety Call Light Within Reach Bed Position Low Bed Exit Alarm Fall Precautions Phone Within Reach Are the Floors Free From Trip Hazards? Yes Is the Room Free From Clutter? Yes Turn and Postion Bedrest Yes Turn Q 2HR No Patient Position Sitting up in Bed Document 06/30/16 15:01 CNB (Rec: 06/30/16 15:02 CNB [id number]) Hourly Rounding Hourly Rounding Checked for Patient Positioning Patient Personal Items Placed Within Reach Checked Patient Pain Level Hourly Rounding Completed Yes Patient Awake Is family present? No Safety Call Light Within Reach Bed Position Low Bed Exit Alarm Fall Precautions Phone Within Reach Side Rails Up X2 Are the Floors Free From Trip Hazards? Yes Is the Room Free From Clutter? Yes Turn and Postion Bedrest Yes Turn Q 2HR No Patient Position Sitting up in Bed Document 06/30/16 16:30 CNB (Rec: 06/30/16 17:34 CNB [id number]) Hourly Rounding Hourly Rounding Checked for Patient Positioning Patient Personal Items Placed Within Reach Hourly Rounding Completed Yes Patient Awake Is family present? No Safety Call Light Within Reach Bed Position Low Bed Exit Alarm Fall Precautions Phone Within Reach Side Rails Up X2 Are the Floors Free From Trip Hazards? Yes Is the Room Free From Clutter? Yes Turn and Postion Bedrest Yes Turn Q 2HR No Patient Position Sitting up in Bed Document 06/30/16 17:34 CNB (Rec: 06/30/16 17:35 CNB [id number]) Hourly Rounding Hourly Rounding Checked for Patient Positioning Patient Personal Items Placed Within Reach Checked Patient Pain Level Hourly Rounding Completed Yes Patient Awake Is family present? No Safety Call Light Within Reach Bed Position Low Bed Exit Alarm Fall Precautions Phone Within Reach Side Rails Up X2 Are the Floors Free From Trip Hazards? Yes Is the Room Free From Clutter? Yes Turn and Postion Bedrest No Turn Q 2HR No Patient Position Sitting up in Bed Document 06/30/16 18:14 CNB (Rec: 06/30/16 18:14 CNB [id number]) Hourly Rounding Hourly Rounding Checked for Patient Positioning Patient Personal Items Placed Within Reach Checked Patient Pain Level Hourly Rounding Completed Yes Patient Awake Is family present? No Safety Call Light Within Reach Bed Position Low Bed Exit Alarm Fall Precautions Phone Within Reach Side Rails Up X2 Are the Floors Free From Trip Hazards? Yes Is the Room Free From Clutter? Yes Turn and Postion Bedrest Yes Turn Q 2HR No Patient Position Sitting up in Bed Document 06/30/16 18:28 CN (Rec: 06/30/16 18:29 CNB [id number]) Hourly Rounding Hourly Rounding Checked for Patient Positioning Patient Personal Items Placed Within Reach Checked Patient Pain Level Hourly Rounding Completed Yes Patient Awake Is family present? No Safety Call Light Within Reach Bed Position Low Bed Exit Alarm Fall Precautions Phone Within Reach Side Rails Up X2 Are the Floors Free From Trip Hazards? Yes Is the Room Free From Clutter? Yes Turn and Postion Bedrest No Turn Q 2HR No Patient Position Sitting up in Bed Document 06/30/16 20:00 [facility] (Rec: 06/30/16 22:30 [facility] [id number]) Hourly Rounding Hourly Rounding Checked for Patient Positioning Patient Personal Items Placed Within Reach Hourly Rounding Completed Yes Patient Awake Is family present? No Safety Call Light Within Reach Bed Position Low Bed Exit Alarm Fall Precautions Phone Within Reach Bed Brake On Side Rails Up X2 Are the Floors Free From Trip Hazards? Yes Is the Room Free From Clutter? Yes Document 06/30/16 22:00 [facility] (Rec: 06/30/16 22:31 [facility] [id number]) Hourly Rounding Hourly Rounding Checked for Patient Positioning Patient Personal Items Placed Within Reach Hourly Rounding Completed Yes Patient Sleeping Is family present? No Safety Call Light Within Reach Bed Position Low Bed Exit Alarm Fall Precautions Phone Within Reach Bed Brake On Side Rails Up X2 Are the Floors Free From Trip Hazards? Yes Is the Room Free From Clutter? Yes Document 06/30/16 22:31 LEXA (Rec: 06/30/16 22:44 LEXA [id number]) Hourly Rounding Hourly Rounding Checked for Patient Positioning Patient Personal Items Placed Within Reach Checked Patient Pain Level Hourly Rounding Completed Yes Patient Awake Is family present? No Equipment in Use Specialty Bed Safety Call Light Within Reach Bed Position Low Bed Exit Alarm Fall Precautions Phone Within Reach Bed Brake On Side Rails Up X2 Are the Floors Free From Trip Hazards? Yes Is the Room Free From Clutter? Yes Turn and Postion Bedrest Yes Turn Q 2HR No Patient Position Back Document 06/30/16 23:28 LEXA (Rec: 06/30/16 23:29 LEXA [id number]) Hourly Rounding Hourly Rounding Checked for Patient Positioning Patient Personal Items Placed Within Reach Hourly Rounding Completed Yes Patient Resting With Eyes Closed Is family present? No Equipment in Use Specialty Bed Safety Call Light Within Reach Bed Position Low Bed Exit Alarm Fall Precautions Phone Within Reach Bed Brake On Side Rails Up X2 Are the Floors Free From Trip Hazards? Yes Is the Room Free From Clutter? Yes Turn and Postion Bedrest No Turn Q 2HR No Patient Position Back Document 07/01/16 05:04 LEXA (Rec: 07/01/16 05:09 LEXA [id number]) Hourly Rounding Hourly Rounding Checked for Patient Positioning Patient Personal Items Placed Within Reach Checked Patient Pain Level Hourly Rounding Completed Yes Patient Sleeping Is family present? No Equipment in Use Specialty Bed Safety Call Light Within Reach Bed Position Low Bed Exit Alarm Fall Precautions Phone Within Reach Bed Brake On Side Rails Up X2 Are the Floors Free From Trip Hazards? Yes Is the Room Free From Clutter? Yes Turn and Postion Bedrest No Turn Q 2HR No Patient Position Back Document 07/01/16 06:15 LEXA (Rec: 07/01/16 06:16 LEXA [id number]) Hourly Rounding Hourly Rounding Checked for Patient Positioning Patient Personal Items Placed Within Reach Checked Patient Pain Level Hourly Rounding Completed Yes Patient Awake Is family present? No Equipment in Use Specialty Bed Safety Call Light Within Reach Bed Position Low Bed Exit Alarm Fall Precautions Phone Within Reach Bed Brake On Side Rails Up X2 Are the Floors Free From Trip Hazards? Yes Is the Room Free From Clutter? Yes Turn and Postion Bedrest No Turn Q 2HR No Patient Position Back Document 07/01/16 07:10 AYW (Rec: 07/01/16 07:20 AYW [id number]) Hourly Rounding Hourly Rounding Checked for Patient Positioning Patient Personal Items Placed Within Reach Hourly Rounding Completed Yes Patient Sleeping Is family present? No Equipment in Use Specialty Bed Safety Call Light Within Reach Bed Position Low Bed Exit Alarm Fall Precautions Phone Within Reach Bed Brake On Side Rails Up X2 Are the Floors Free From Trip Hazards? Yes Is the Room Free From Clutter? Yes Turn and Postion Bedrest No Turn Q 2HR No Patient Position Back Document 07/01/16 08:49 CM (Rec: 07/01/16 08:50 CM [id number]) Hourly Rounding Hourly Rounding Checked for Patient Positioning Hourly Rounding Completed Yes Patient Resting With Eyes Closed Is family present? No Safety Call Light Within Reach Bed Position Low Fall Precautions Phone Within Reach Bed Brake On Side Rails Up X1 Side Rails Up X2 Are the Floors Free From Trip Hazards? Yes Is the Room Free From Clutter? Yes Turn and Postion Bedrest Yes Turn Q 2HR Yes Patient Position Right Side Positioning Aides Pillows Document 07/01/16 09:24 AYW (Rec: 07/01/16 09:24 AYW [id number]) Hourly Rounding Hourly Rounding Checked for Patient Positioning Patient Personal Items Placed Within Reach Checked Patient Pain Level Hourly Rounding Completed Yes Patient Awake Is family present? No Equipment in Use Specialty Bed Safety Call Light Within Reach Bed Position Low Bed Exit Alarm Fall Precautions Phone Within Reach Bed Brake On Side Rails Up X2 Are the Floors Free From Trip Hazards? Yes Is the Room Free From Clutter? Yes Turn and Postion Bedrest Yes Turn Q 2HR Yes Patient Position Back Head of Bed Position (degrees) 35 Document 07/01/16 11:30 AYW (Rec: 07/01/16 12:20 AYW [id number]) Hourly Rounding Hourly Rounding Checked for Patient Positioning Patient Personal Items Placed Within Reach Checked Patient Pain Level Hourly Rounding Completed Yes Patient Sleeping Is family present? No Equipment in Use Specialty Bed Safety Call Light Within Reach Bed Position Low Bed Exit Alarm Fall Precautions Phone Within Reach Bed Brake On Side Rails Up X2 Are the Floors Free From Trip Hazards? Yes Is the Room Free From Clutter? Yes Turn and Postion Bedrest Yes Turn Q 2HR Yes Patient Position Left Side Positioning Aides Pillows Document 07/01/16 12:08 KARINA (Rec: 07/01/16 12:08 KARINA [id number]) Hourly Rounding Hourly Rounding Checked for Patient Positioning Patient Personal Items Placed Within Reach Hourly Rounding Completed Yes Patient Sleeping Is family present? No Equipment in Use Specialty Bed Safety Call Light Within Reach Bed Position Low Bed Exit Alarm Fall Precautions Phone Within Reach Bed Brake On Side Rails Up X2 Are the Floors Free From Trip Hazards? Yes Is the Room Free From Clutter? Yes Turn and Postion Bedrest Yes Patient Position Left Side Positioning Aides Pillows Document 07/01/16 13:15 KARINA (Rec: 07/01/16 13:16 KARINA [id number]) Hourly Rounding Hourly Rounding Checked for Patient Positioning Patient Personal Items Placed Within Reach Hourly Rounding Completed Yes Patient Sleeping Is family present? Yes Equipment in Use Specialty Bed Safety Call Light Within Reach Bed Position Low Bed Exit Alarm Fall Precautions Phone Within Reach Side Rails Up X2 Are the Floors Free From Trip Hazards? Yes Is the Room Free From Clutter? Yes Turn and Postion Bedrest Yes Patient Position Left Side Positioning Aides Pillows Document 07/01/16 15:19 AYW (Rec: 07/01/16 15:19 AYW [id number]) Hourly Rounding Hourly Rounding Checked for Patient Positioning Patient Personal Items Placed Within Reach Hourly Rounding Completed Yes Patient Sleeping Is family present? No Equipment in Use Specialty Bed Safety Call Light Within Reach Bed Position Low Bed Exit Alarm Fall Precautions Phone Within Reach Side Rails Up X2 Are the Floors Free From Trip Hazards? Yes Is the Room Free From Clutter? Yes Turn and Postion Bedrest Yes Turn Q 2HR Yes Patient Position Back Perineal care Start: 06/28/16 22: 54 Freq: Status: Complete Document 07/01/16 16:29 AYW (Rec: 07/01/16 16:36 AYW [id number]) Peripheral venous cannula mgmt/flush Start: 06/29/16 01: 59 Freq: CONT Status: Discharge Document 06/29/16 06:24 ITC (Rec: 06/29/16 06:27 ITC [id number]) Document 06/30/16 00:57 TGJ (Rec: 06/30/16 01:30 TGJ [id number]) Document 07/01/16 12:10 AYW (Rec: 07/01/16 12:10 AYW [id number]) Sepsis Screening Start: 06/28/16 22: 30 Freq: Q8H Status: Discharge Document 06/28/16 23:37 SML (Rec: 06/28/16 23:47 SML [id number]) Sepsis Screening Sepsis Infection Criteria Present none Sepsis SIRS Criteria none Sepsis Screen No Definite Risk Sepsis Action Taken no action required Document 06/29/16 08:50 CNB (Rec: 06/29/16 08:50 CNB [id number]) Sepsis Screening Sepsis Infection Criteria Present none Sepsis SIRS Criteria WBC > 12k or < 4k or bands > 10% Sepsis Screen No Definite Risk Sepsis Action Taken no action required Document 06/29/16 13:44 CNB (Rec: 06/29/16 13:44 CNB [id number]) Sepsis Screening Sepsis Infection Criteria Present none Sepsis SIRS Criteria WBC > 12k or < 4k or bands > 10% Sepsis Screen No Definite Risk Sepsis Action Taken no action required Document 06/29/16 22:15 TGJ (Rec: 06/29/16 22:47 TGJ [id number]) Sepsis Screening Sepsis Infection Criteria Present suspected infection Sepsis SIRS Criteria WBC > 12k or < 4k or bands > 10% Sepsis Screen No Definite Risk Sepsis Action Taken no action required Document 06/30/16 00:57 TGJ (Rec: 06/30/16 01:30 TGJ [id number]) Sepsis Screening Sepsis Infection Criteria Present suspected infection Sepsis SIRS Criteria WBC > 12k or < 4k or bands > 10% Sepsis Screen No Definite Risk Sepsis Action Taken no action required Document 06/30/16 09:27 CNB (Rec: 06/30/16 09:27 CNB [id number]) Sepsis Screening Sepsis Infection Criteria Present suspected infection Sepsis SIRS Criteria WBC > 12k or < 4k or bands > 10% Sepsis Screen No Definite Risk Sepsis Action Taken no action required Document 06/30/16 13:07 CNB (Rec: 06/30/16 13:08 CNB [id number]) Sepsis Screening Sepsis Infection Criteria Present suspected infection Sepsis SIRS Criteria WBC > 12k or < 4k or bands > 10% Sepsis Screen No Definite Risk Sepsis Action Taken no action required Document 06/30/16 22:31 LEXA (Rec: 06/30/16 22:44 LEXA [id number]) Sepsis Screening Sepsis Infection Criteria Present none Sepsis SIRS Criteria WBC > 12k or < 4k or bands > 10% Sepsis Screen No Definite Risk Sepsis Action Taken no action required Document 07/01/16 05:04 LEXA (Rec: 07/01/16 05:09 LEXA [id number]) Sepsis Screening Sepsis Infection Criteria Present none Sepsis SIRS Criteria WBC > 12k or < 4k or bands > 10% Sepsis Screen No Definite Risk Sepsis Action Taken no action required Document 07/01/16 09:50 KARINA (Rec: 07/01/16 11:41 KARINA [id number]) Sepsis Screening Sepsis Infection Criteria Present none Sepsis SIRS Criteria WBC > 12k or < 4k or bands > 10% Sepsis Screen No Definite Risk Sepsis Action Taken no action required Document 07/01/16 16:13 KARINA (Rec: 07/01/16 16:19 KARINA [id number]) Sepsis Screening Sepsis Infection Criteria Present none Sepsis SIRS Criteria WBC > 12k or < 4k or bands > 10% Sepsis Screen No Definite Risk Sepsis Action Taken no action required Skin Risk Assessment Scale Start: 06/28/16 22: 30 Freq: Q12H Status: Discharge Document 06/28/16 23:37 SML (Rec: 06/28/16 23:47 SML [id number]) Skin Risk Assessment Scale Moisture Risk Occasionally Moist Sensory Perception Very Limited Activity Risk Bedfast Mobility Risk Very Limited Nutrition Risk Probably Inadequate Friction & Shear Risk Potential Problem Skin Risk Total Score (points) 12 Document 06/29/16 08:51 CNB (Rec: 06/29/16 08:51 CNB [id number]) Skin Risk Assessment Scale Moisture Risk Rarely Moist Sensory Perception Very Limited Activity Risk Walks Occasionally Mobility Risk Very Limited Nutrition Risk Probably Inadequate Friction & Shear Risk Potential Problem Skin Risk Total Score (points) 15 Document 06/29/16 22:15 TGJ (Rec: 06/29/16 22:35 TGJ [id number]) Skin Risk Assessment Scale Moisture Risk Rarely Moist Sensory Perception No Impairment Activity Risk Walks Occasionally Mobility Risk Very Limited Nutrition Risk Probably Inadequate Friction & Shear Risk Potential Problem Skin Risk Total Score (points) 17 Document 06/30/16 09:30 CNB (Rec: 06/30/16 09:30 CNB [id number]) Skin Risk Assessment Scale Moisture Risk Rarely Moist Sensory Perception Very Limited Activity Risk Walks Occasionally Mobility Risk Very Limited Nutrition Risk Probably Inadequate Friction & Shear Risk Potential Problem Skin Risk Total Score (points) 15 Document 06/30/16 22:31 LEXA (Rec: 06/30/16 22:44 LEXA [id number]) Skin Risk Assessment Scale Moisture Risk Occasionally Moist Sensory Perception Very Limited Activity Risk Bedfast Mobility Risk Completely Immobile Nutrition Risk Probably Inadequate Friction & Shear Risk Potential Problem Skin Risk Total Score (points) 11 Document 07/01/16 09:50 KARINA (Rec: 07/01/16 11:41 KARINA [id number]) Skin Risk Assessment Scale Moisture Risk Occasionally Moist Sensory Perception Very Limited Activity Risk Bedfast Mobility Risk Very Limited Nutrition Risk Probably Inadequate Friction & Shear Risk Potential Problem Skin Risk Total Score (points) 12 Social Work Discharge Assessment Start: 06/29/16 15: 14 Freq: Status: Complete Document 07/01/16 16:41 JVH (Rec: 07/01/16 16:42 JVH [id number]) Social Work Discharge Assessment Discharge Comment PT RETURN TO [facility]/ [facility] ECF Referral Type Return Social Work Initial Assessment Start: 06/29/16 15: 14 Freq: Status: Complete Document 06/29/16 15:20 JVH (Rec: 06/29/16 15:33 JVH [id number]) Next Of Kin Emergency Contact Name Lincoln Cerda Emergency Contact Phone Number [phone] Relationship to Patient Son Advanced Dir/Guardianship Advance Directives Yes Advance Directives Information Provided Yes Advance Directives on File No: Requested from son "Lincoln" Living Will No Power of Research Analyst Yes Power of Research Analyst Name Lincoln Cerda Power of Research Analyst Living Situation Home Environment ECF Resides With Other Anticipated Discharge Plan Disposition ECF Disposition Notes PT FROM [facility], CALL TO [facility], WAS INFORMED PT IS A [place] [employer] RESIDENT, PT BEEN THERE SINCE NOVEMBER AND PT CAN RETURN TO THEM AT ANYTIME, INFORMED PT TO HAVE SURG. TOMORROW, 06/30, TO REPAIR RIGHT HIP FX. CM ASST, NATHAN, TO FAXED PT'S PHI TO [facility]. INFORMED NURSING STAFF PT TO RETURN TO [facility] WHEN MEDICALLY STABLE. 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 Strength Unable to assess Push/Pull Unable to assess Facial Symmetry Symmetrical Cardiovascular Assessment Signs and Symptoms None Heart Sounds S1 & S2 Jugular Vein Distention None Capillary Refill < 3 Seconds Right Radial 2+ Left Radial 2+ Right Dorsalis Pedis 2+ Left Dorsalis Pedis 2+ Has Confirmed Diagnosis of DVT, PE or No VTE Mechanical Prophylaxis No Respiratory Assessment Respiratory Symptoms None Effort Normal for Patient Spontaneous Non-Labored Depth Normal Respiratory Pattern Regular Chest Shape Normal Expansion Symmetrical All Lung [place] Clear Oxygen Delivery Method Room Air Cough Description None Sputum Amount None Gastrointestinal Assessment Abdomen Description Flat Soft 3 or more loose stools, in less than 24 Unknown hours Nausea/Vomiting Presence None All Four Quadrants Active Flatus Presence Absent Genitourinary Assessment Bladder Pattern Incontinent Incontinence Total Voiding Method Indwelling Catheter Urine Appearance Clear Color Pale Odor Normal Bladder Distention None Integumentary Assessment Fingernail Color Yellow Nail Bed Appearance [place] Temperature Warm Moisture Dry Turgor Loose Color Normal All Pressure Points Assessed Yes Evidence of Incision/Wounds/Breakdown No Mucous membranes moist, pink and intact Yes Integumentary Comment: Bruising noted to RLE and to R -Wrist and 5th digit Musculoskeletal Assessment Musculoskeletal Symptoms Fracture Dislocation Document 06/29/16 09:24 [facility] (Rec: 06/29/16 09:33 [facility] [id number]) Pain Assessment Pain Present Unable to Respond Neurological Assessment Eye Opening Spontaneous Motor Obeys Commands Verbal Confused Coma Scale Total 14 Neurologic Status Unresponsive Arousable To Name Speech Pattern Non-verbal Patient Behavior Appropriate Cooperative Mood Description Calm Bilateral Pupil Reaction Reactive Facial Symmetry Symmetrical Neurological Comment: Patient unable to follow commands to assess push/pull and hand python architect. Nonverbal Cardiovascular Assessment Signs and Symptoms None Heart Sounds S1 & S2 Pulse Rhythm Regular Jugular Vein Distention None Capillary Refill < 3 Seconds Right Radial 2+ Left Radial 2+ Right Dorsalis Pedis 2+ Left Dorsalis Pedis 2+ Has Confirmed Diagnosis of DVT, PE or No VTE Mechanical Prophylaxis No Cardiac Monitoring Heart Rate 83 Monitoring Method Telemetry Rhythm Sinus Rhythm DC Interval 0.09 QRS Interval 0.08 QT Interval 0.35 Monitor Number [id number] Strip placed in Chart Yes Monitor History Reviewed Yes Memory Cleared No Respiratory Assessment Respiratory Symptoms None Effort Normal for Patient Depth Normal Respiratory Pattern Regular Chest Shape Normal Right Upper Lobe Clear Diminished Right Middle Lobe Clear Diminished Right Lower Lobe Clear Diminished Left Upper Lobe Clear Diminished Left Lower Lobe Clear Diminished Right Upper Lobe Clear Right Middle Lobe Clear Right Lower Lobe Clear Left Upper Lobe Clear Left Lower Lobe Clear Oxygen Delivery Method Room Air Cough Description None Sputum Amount None Gastrointestinal Assessment Abdomen Description Soft Non-Tender 3 or more loose stools, in less than 24 No hours Nausea/Vomiting Presence None All Four Quadrants Active Genitourinary Assessment Genitourinary Symptoms None Voiding Method Indwelling Catheter Urine Appearance Clear Color Bright Yellow Odor Normal Bladder Distention None Suprapubic Tenderness with Palpation No Integumentary Assessment Nail Bed Appearance [place] Temperature Warm Moisture Dry Turgor Normal Color Normal All Pressure Points Assessed Yes Evidence of Incision/Wounds/Breakdown No Mucous membranes moist, pink and intact Yes Oral Cavity Normal Musculoskeletal Assessment Musculoskeletal Symptoms Generalized Weakness Document 06/29/16 13:44 [facility] (Rec: 06/29/16 13:47 [facility] [id number]) Pain Assessment Pain Present Unable to Respond Neurological Assessment Eye Opening Spontaneous Motor Obeys Commands Verbal Confused Coma Scale Total 14 Neurologic Status Unresponsive Arousable To Name Speech Pattern Non-verbal Patient Behavior Appropriate Cooperative Mood Description Calm Bilateral Pupil Reaction Reactive Sensory Hard of Hearing Shot Hole Driller Strength Unable to assess Push/Pull Unable to assess Facial Symmetry Symmetrical Neurological Comment: Patient unable to follow commands to assess push/pull and hand python architect. Cardiovascular Assessment Signs and Symptoms None Heart Sounds S1 & S2 Pulse Rhythm Regular Jugular Vein Distention None Capillary Refill < 3 Seconds Right Radial 2+ Left Radial 2+ Right Dorsalis Pedis 2+ Left Dorsalis Pedis 2+ Chest Pain Complaint No Has Confirmed Diagnosis of DVT, PE or No VTE Mechanical Prophylaxis No Cardiac Monitoring Heart Rate 61 Monitoring Method Telemetry Rhythm Sinus Rhythm DC Interval 0.08 QRS Interval 0.07 QT Interval 0.46 Monitor Number [id number] Strip placed in Chart Yes Monitor History Reviewed Yes Memory Cleared No Respiratory Assessment Respiratory Symptoms None Effort Normal for Patient Depth Normal Respiratory Pattern Regular Chest Shape Normal Expansion Symmetrical Right Upper Lobe Clear Diminished Right Middle Lobe Clear Diminished Right Lower Lobe Clear Diminished Left Upper Lobe Clear Diminished Left Lower Lobe Clear Diminished Left Upper Lobe Clear Left Lower Lobe Clear Oxygen Delivery Method Room Air Cough Description None Sputum Amount None Gastrointestinal Assessment Abdomen Description Soft Non-Tender 3 or more loose stools, in less than 24 No hours Nausea/Vomiting Presence None All Four Quadrants Active Genitourinary Assessment Genitourinary Symptoms None Voiding Method Indwelling Catheter Urine Appearance Sediment Color Bright Yellow Odor Normal Bladder Distention None Suprapubic Tenderness with Palpation No Integumentary Assessment Nail Bed Appearance [place] Temperature Warm Moisture Dry Turgor Normal Color Normal All Pressure Points Assessed Yes Evidence of Incision/Wounds/Breakdown No Mucous membranes moist, pink and intact Yes Oral Cavity Normal Musculoskeletal Assessment Musculoskeletal Symptoms Generalized Weakness Document 06/29/16 22:15 TG (Rec: 06/29/16 22:47 TG [id number]) Pain Assessment Pain Present Unable to Respond Neurological Assessment Eye Opening Spontaneous Motor Obeys Commands Verbal None Coma Scale Total 11 Neurologic Status Alert Speech Pattern Non-verbal Patient Behavior Appropriate Cooperative Mood Description Calm Bilateral Pupil Reaction Reactive Scleral Edema No Sensory Hard of Hearing Blind [place] Driller Strength Equal Push/Pull Unable to assess Facial Symmetry Symmetrical Cardiovascular Assessment Signs and Symptoms None Heart Sounds S1 & S2 Pulse Rhythm Regular Jugular Vein Distention None Capillary Refill < 3 Seconds Right Radial 2+ Left Radial 2+ Right Dorsalis Pedis 2+ Left Dorsalis Pedis 2+ Has Confirmed Diagnosis of DVT, PE or No VTE VTE Prophylaxis SQ Treatment Mechanical Prophylaxis No Respiratory Assessment Respiratory Symptoms None Effort Normal for Patient Depth Normal Respiratory Pattern Regular Chest Shape Normal Expansion Symmetrical Right Upper Lobe Clear Diminished Right Middle Lobe Clear Diminished Right Lower Lobe Clear Diminished Left Upper Lobe Clear Diminished Left Lower Lobe Clear Diminished Oxygen Delivery Method Room Air Cough Description None Gastrointestinal Assessment Abdomen Description Soft Non-Tender 3 or more loose stools, in less than 24 No hours Nausea/Vomiting Presence None All Four Quadrants Active Genitourinary Assessment Genitourinary Symptoms None Voiding Method Indwelling Catheter Color Dark Yellow Bladder Distention None Suprapubic Tenderness with Palpation No Integumentary Assessment Nail Bed Appearance [place] Temperature Warm Moisture Dry Turgor Normal Color Normal All Pressure Points Assessed Yes Evidence of Incision/Wounds/Breakdown No: see wound assessment Mucous membranes moist, pink and intact Yes Oral Cavity Normal Musculoskeletal Assessment Musculoskeletal Symptoms Generalized Weakness Document 06/30/16 00:57 TG (Rec: 06/30/16 01:30 TG [id number]) Pain Assessment Pain Present Reports No Pain Neurological Assessment Eye Opening Spontaneous Motor Obeys Commands Verbal None Coma Scale Total 11 Neurologic Status Alert Speech Pattern Non-verbal Patient Behavior Appropriate Cooperative Mood Description Calm Relaxed Bilateral Pupil Reaction Reactive Scleral Edema No Shot Hole Driller Strength Equal Push/Pull Unable to assess Facial Symmetry Symmetrical Cardiovascular Assessment Signs and Symptoms None Heart Sounds S1 & S2 Pulse Rhythm Regular Jugular Vein Distention None Capillary Refill < 3 Seconds Right Radial 2+ Left Radial 2+ Right Dorsalis Pedis 2+ Left Dorsalis Pedis 2+ Has Confirmed Diagnosis of DVT, PE or No VTE VTE Prophylaxis SQ Treatment Mechanical Prophylaxis No Respiratory Assessment Respiratory Symptoms None Effort Normal for Patient Depth Normal Respiratory Pattern Regular Chest Shape Normal Expansion Symmetrical All Lung [place] Clear Right Upper Lobe Clear Diminished Right Middle Lobe Clear Diminished Right Lower Lobe Clear Diminished Left Upper Lobe Clear Diminished Left Lower Lobe Clear Diminished Oxygen Delivery Method Room Air Cough Description None Sputum Amount None Gastrointestinal Assessment Abdomen Description Soft Non-Tender 3 or more loose stools, in less than 24 No hours Nausea/Vomiting Presence None All Four Quadrants Active Genitourinary Assessment Genitourinary Symptoms None Voiding Method Indwelling Catheter Urine Appearance Cloudy Color Dark Yellow Odor Strong Bladder Distention None Suprapubic Tenderness with Palpation No Integumentary Assessment Nail Bed Appearance [place] Temperature Warm Moisture Dry Turgor Normal Color Normal All Pressure Points Assessed Yes Evidence of Incision/Wounds/Breakdown No: see wound assessment Mucous membranes moist, pink and intact Yes Oral Cavity Normal Musculoskeletal Assessment Musculoskeletal Symptoms Generalized Weakness Document 06/30/16 08:00 HBD (Rec: 06/30/16 10:24 HBD [id number]) Pain Assessment Pain Present Unable to Respond Neurological Assessment Eye Opening To Voice Verbal Confused Neurologic Status Responds to voice Arousable To Name Patient Behavior Appropriate Cooperative Mood Description Calm Bilateral Pupil Reaction Unreactive Pupil [place] Equal Scleral Edema No Sensory Hard of Hearing Shot Hole Driller Strength Unable to assess Push/Pull Unable to assess Facial Symmetry Symmetrical Neurological Comment: unable to assess bilateral machine veneer repairer strengths due to confusion and inability to follow commands, 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 Cardiovascular Assessment Signs and Symptoms None Heart Sounds S1 & S2 Pulse Rhythm Regular Right Radial 2+ Left Radial 2+ Right Dorsalis Pedis 2+ Left Dorsalis Pedis 2+ Right Posterior Tibialis 1+ Left Posterior Tibialis 1+ Has Confirmed Diagnosis of DVT, PE or No VTE VTE Prophylaxis SQ Treatment Mechanical Prophylaxis No Respiratory Assessment Respiratory Symptoms None Effort Normal for Patient Depth Normal Respiratory Pattern Regular All Lung [place] Clear Oxygen Delivery Method Room Air Cough Description None Gastrointestinal Assessment Abdomen Description Flat Soft Non-Tender 3 or more loose stools, in less than 24 No hours Nausea/Vomiting Presence None All Four Quadrants Active Genitourinary Assessment Genitourinary Symptoms None Voiding Method Indwelling Catheter Urine Appearance Cloudy Color Dark Yellow Integumentary Assessment Fingernail Color Yellow Nail Bed Appearance [place] Temperature Warm Moisture Dry Turgor Elastic Color Normal All Pressure Points Assessed Yes Evidence of Incision/Wounds/Breakdown No Mucous membranes moist, pink and intact Yes Oral Cavity Normal Musculoskeletal Assessment Musculoskeletal Symptoms Generalized Weakness Document 06/30/16 09:27 [facility] (Rec: 06/30/16 09:29 [facility] [id number]) Pain Assessment Pain Present Unable to Respond Neurological Assessment Eye Opening Spontaneous Motor Obeys Commands Verbal Confused Coma Scale Total 14 Neurologic Status Alert Arousable To Name Speech Pattern Non-verbal Patient Behavior Appropriate Cooperative Mood Description Calm Sensory Hard of Hearing Shot [place] Driller Strength Unable to assess Push/Pull Unable to assess Numbness/Tingling Unable to assess Facial Symmetry Symmetrical Blink Present Cough/Gag Normal Cardiovascular Assessment Signs and Symptoms None Heart Sounds S1 & S2 Pulse Rhythm Regular Jugular Vein Distention None Right Radial 2+ Left Radial 2+ Right Dorsalis Pedis 2+ Left Dorsalis Pedis 2+ Chest Pain Complaint No Has Confirmed Diagnosis of DVT, PE or No VTE VTE Prophylaxis SQ Treatment Mechanical Prophylaxis No Pacemaker Assessment Cardiac Comment: No telemetry. Respiratory Assessment Respiratory Symptoms None Effort Normal for Patient Depth Normal Respiratory Pattern Regular Chest Shape Normal Expansion Symmetrical Right Upper Lobe Clear Right Middle Lobe Clear Right Lower Lobe Clear Left Upper Lobe Clear Left Lower Lobe Clear Oxygen Delivery Method Room Air Cough Description None Sputum Amount None Gastrointestinal Assessment Abdomen Description Soft Non-Tender 3 or more loose stools, in less than 24 No hours Nausea/Vomiting Presence None All Four Quadrants Hypoactive Genitourinary Assessment Genitourinary Symptoms None Voiding Method Indwelling Catheter Urine Appearance Cloudy Sediment Mucous Threads Color Dark Yellow Bladder Distention None Suprapubic Tenderness with Palpation No Integumentary Assessment Fingernail Color Yellow Nail Bed Appearance [place] Temperature Warm Moisture Dry Turgor Normal Color Normal All Pressure Points Assessed No Evidence of Incision/Wounds/Breakdown No Mucous membranes moist, pink and intact Yes Oral Cavity Normal Integumentary Comment: Unable to turn patient at this time, patient has hip fracture. Musculoskeletal Assessment Musculoskeletal Symptoms Generalized Weakness Fracture Document 06/30/16 13:08 [facility] (Rec: 06/30/16 13:10 [facility]B [id number]) Pain Assessment Pain Present Unable to Respond Neurological Assessment Eye Opening Spontaneous Motor Obeys Commands Verbal Confused Coma Scale Total 14 Neurologic Status Alert Arousable To Name Speech Pattern Non-verbal Patient Behavior Appropriate Cooperative Mood Description Calm Bilateral Pupil [place] Equal Sensory Hard of Hearing Shot [place] Driller Strength Unable to assess Push/Pull Unable to assess Numbness/Tingling Unable to assess Facial Symmetry Symmetrical Blink Present Cough/Gag Normal Cardiovascular Assessment Signs and Symptoms None Heart Sounds S1 & S2 Pulse Rhythm Regular Jugular Vein Distention None Capillary Refill < 3 Seconds Right Radial 2+ Left Radial 2+ Right Dorsalis Pedis 2+ Left Dorsalis Pedis 2+ Chest Pain Complaint No Has Confirmed Diagnosis of DVT, PE or No VTE VTE Prophylaxis SQ Treatment Mechanical Prophylaxis No Pacemaker Assessment Cardiac Comment: No telemetry. Respiratory Assessment Respiratory Symptoms None Effort Normal for Patient Depth Normal Respiratory Pattern Regular Chest Shape Normal Expansion Symmetrical Right Upper Lobe Clear Right Middle Lobe Clear Right Lower Lobe Clear Left Upper Lobe Clear Left Lower Lobe Clear Right Upper Lobe Clear Right Middle Lobe Clear Right Lower Lobe Clear Left Upper Lobe Clear Left Lower Lobe Clear Oxygen Delivery Method Room Air Cough Description None Sputum Amount None Gastrointestinal Assessment Abdomen Description Soft Non-Tender 3 or more loose stools, in less than 24 No hours Nausea/Vomiting Presence None All Four Quadrants Hypoactive Genitourinary Assessment Genitourinary Symptoms None Voiding Method Indwelling Catheter Urine Appearance Cloudy Sediment Mucous Threads Color Dark Yellow Bladder Distention None Suprapubic Tenderness with Palpation No Integumentary Assessment Fingernail Color Yellow Nail Bed Appearance [place] Temperature Warm Moisture Dry Turgor Normal Color Normal All Pressure Points Assessed Yes Evidence of Incision/Wounds/Breakdown No Mucous membranes moist, pink and intact Yes Oral Cavity Normal Musculoskeletal Assessment Musculoskeletal Symptoms Generalized Weakness Fracture Document 06/30/16 22:31 [facility] (Rec: 06/30/16 22:44 [facility] [id number]) Pain Assessment Pain Present Unable to Respond Neurological Assessment Eye Opening Spontaneous Motor Obeys Commands Verbal None Coma Scale Total 11 Neurologic Status Responds to voice Arousable To Name Speech Pattern Non-verbal Patient Behavior Appropriate Cooperative Mood Description Calm Relaxed Bilateral Pupil Reaction Reactive Pupil [place] Equal Scleral Edema No Sensory Hard of Hearing All Four Limbs Strength Severe Weakness Shot Hole Driller Strength Unable to assess Push/Pull Unable to assess Numbness/Tingling No Facial Symmetry Symmetrical Neurological Comment: PT noncooperative with push/ pulls and python architect. Cardiovascular Assessment Signs and Symptoms None Heart Sounds S1 & S2 Pulse Rhythm Regular Jugular Vein Distention None Capillary Refill < 3 Seconds Circulatory Tenderness Description None Right Radial 2+ Left Radial 2+ Right Dorsalis Pedis 2+ Left Dorsalis Pedis 2+ Right Posterior Tibialis 2+ Left Posterior Tibialis 2+ Has Confirmed Diagnosis of DVT, PE or No VTE VTE Prophylaxis SQ Treatment Mechanical Prophylaxis No Respiratory Assessment Respiratory Symptoms None Effort Spontaneous Non-Labored Depth Normal Respiratory Pattern Regular Chest Shape Normal Expansion Symmetrical All Lung [place] Clear Oxygen Delivery Method Room Air Cough Description None Sputum Amount None Gastrointestinal Assessment Abdomen Description Flat Soft Non-Tender 3 or more loose stools, in less than 24 No hours Nausea/Vomiting Presence None All Four Quadrants Active Flatus Presence Present Genitourinary Assessment Genitourinary Symptoms None Bladder Pattern Normal Voiding Method Indwelling Catheter Urine Appearance Cloudy Sediment Mucous Threads Color Dark Yellow Bladder Distention None Suprapubic Tenderness with Palpation No Integumentary Assessment Nail Bed Appearance [place] Temperature Warm Moisture Dry Turgor Normal Color Normal All Pressure Points Assessed Yes Evidence of Incision/Wounds/Breakdown No Mucous membranes moist, pink and intact Yes Oral Cavity Normal Musculoskeletal Assessment Musculoskeletal Symptoms Generalized Weakness Document 07/01/16 05:04 [facility] (Rec: 07/01/16 05:09 [facility] [id number]) Pain Assessment Pain Present Unable to Respond Neurological Assessment Eye Opening Spontaneous Motor Obeys Commands Verbal None Coma Scale Total 11 Neurologic Status Responds to voice Arousable To Name Speech Pattern Non-verbal Patient Behavior Uncooperative Asleep Mood Description Apprehensive Bilateral Pupil Reaction Reactive Pupil [place] Equal Scleral Edema No Sensory Hard of Hearing All Four Limbs Strength Severe Weakness Shot Hole Driller Strength Unable to assess Push/Pull Unable to assess Numbness/Tingling No Facial Symmetry Symmetrical Neurological Comment: PT unwilling to cooperate with python architect and push/pulls Cardiovascular Assessment Signs and Symptoms None Heart Sounds S1 & S2 Pulse Rhythm Regular Jugular Vein Distention None Capillary Refill < 3 Seconds Circulatory Tenderness Description None Right Radial 2+ Left Radial 2+ Right Dorsalis Pedis 2+ Left Dorsalis Pedis 2+ Right Posterior Tibialis 2+ Left Posterior Tibialis 2+ Has Confirmed Diagnosis of DVT, PE or No VTE VTE Prophylaxis SQ Treatment Mechanical Prophylaxis No Respiratory Assessment Respiratory Symptoms None Effort Spontaneous Non-Labored Depth Normal Respiratory Pattern Regular Chest Shape Normal Expansion Symmetrical All Lung [place] Clear Oxygen Delivery Method Room Air Cough Description None Sputum Amount None Gastrointestinal Assessment Abdomen Description Flat Soft Non-Tender 3 or more loose stools, in less than 24 No hours Nausea/Vomiting Presence None All Four Quadrants Active Flatus Presence Present Genitourinary Assessment Genitourinary Symptoms None Bladder Pattern Normal Voiding Method Indwelling Catheter Urine Appearance Cloudy Sediment Mucous Threads Color Dark Yellow Bladder Distention None Suprapubic Tenderness with Palpation No Integumentary Assessment Nail Bed Appearance [place] Temperature Warm Moisture Dry Turgor Normal Color Normal All Pressure Points Assessed Yes Evidence of Incision/Wounds/Breakdown No Mucous membranes moist, pink and intact Yes Oral Cavity Normal Musculoskeletal Assessment Musculoskeletal Symptoms Generalized Weakness Document 07/01/16 09:50 [facility] (Rec: 07/01/16 11:41 [facility] [id number]) Pain Assessment Pain Present Unable to Respond Neurological Assessment Eye Opening Spontaneous Motor Obeys Commands Verbal None Coma Scale Total 11 Neurologic Status Agitation/Confusion Arousable To Name Speech Pattern Non-verbal Patient Behavior Uncooperative Asleep Mood Description Calm Bilateral Pupil Reaction Reactive Pupil [place] Equal Scleral Edema No Sensory Hard of Hearing All Four Limbs Strength Severe Weakness Shot Hole Driller Strength Unable to assess Push/Pull Unable to assess Numbness/Tingling No Facial Symmetry Symmetrical Cardiovascular Assessment Signs and Symptoms None Heart Sounds S1 & S2 Pulse Rhythm Regular Jugular Vein Distention None Capillary Refill < 3 Seconds Circulatory Tenderness Description None Right Radial 2+ Left Radial 2+ Right Dorsalis Pedis 2+ Left Dorsalis Pedis 2+ Has Confirmed Diagnosis of DVT, PE or No VTE VTE Prophylaxis SQ Treatment Mechanical Prophylaxis No Respiratory Assessment Respiratory Symptoms None Effort Spontaneous Non-Labored Depth Normal Respiratory Pattern Regular Chest Shape Normal Expansion Symmetrical All Lung [place] Clear Diminished Oxygen Delivery Method Room Air Cough Description None Sputum Amount None Gastrointestinal Assessment Abdomen Description Flat Soft Non-Tender 3 or more loose stools, in less than 24 No hours Nausea/Vomiting Presence None All Four Quadrants Active Right Upper Quadrant Active Left Upper Quadrant Active Right Lower Quadrant Active Left Lower Quadrant Active Genitourinary Assessment Genitourinary Symptoms None Bladder Pattern Normal Voiding Method Indwelling Catheter Urine Appearance Cloudy Sediment Mucous Threads Color Tea Colored Bladder Distention None Suprapubic Tenderness with Palpation No Integumentary Assessment Fingernail Color Yellow Nail Bed Appearance [place] Temperature Warm Moisture Dry Turgor Normal Color Normal All Pressure Points Assessed Yes Evidence of Incision/Wounds/Breakdown No Mucous membranes moist, pink and intact Yes Oral Cavity Normal Missing Teeth Musculoskeletal Assessment Musculoskeletal Symptoms Generalized Weakness Document 07/01/16 16:13 [facility] (Rec: 07/01/16 16:19 [facility] [id number]) Pain Assessment Pain Present Unable to Respond Neurological Assessment Eye Opening Spontaneous Motor Obeys Commands Verbal None Coma Scale Total 11 Neurologic Status Alert Arousable To Name Speech Pattern Non-verbal Patient Behavior Uncooperative Asleep Mood Description Calm Bilateral Pupil Reaction Reactive Pupil [place] Equal Scleral Edema No Sensory Hard of Hearing All Four Limbs Strength Severe Weakness Shot Hole Driller Strength Unable to assess Push/Pull Unable to assess Numbness/Tingling No Facial Symmetry Symmetrical Cardiovascular Assessment Signs and Symptoms None Heart Sounds S1 & S2 Pulse Rhythm Regular Jugular Vein Distention None Capillary Refill < 3 Seconds Circulatory Tenderness Description None Right Radial 2+ Left Radial 2+ Right Dorsalis Pedis 2+ Left Dorsalis Pedis 2+ Has Confirmed Diagnosis of DVT, PE or No VTE VTE Prophylaxis SQ Treatment Mechanical Prophylaxis No Respiratory Assessment Respiratory Symptoms None Effort Spontaneous Non-Labored Depth Normal Respiratory Pattern Regular Chest Shape Normal Expansion Symmetrical All Lung [place] Clear Diminished Oxygen Delivery Method Room Air Cough Description None Sputum Amount None Gastrointestinal Assessment Abdomen Description Flat Soft Non-Tender 3 or more loose stools, in less than 24 No hours Nausea/Vomiting Presence None All Four Quadrants Active Right Upper Quadrant Active Left Upper Quadrant Active Right Lower Quadrant Active Left Lower Quadrant Active Genitourinary Assessment Genitourinary Symptoms None Bladder Pattern Normal Voiding Method Bedpan Bladder Distention None Suprapubic Tenderness with Palpation No Comment: No urine to assess at this time. Integumentary Assessment Fingernail Color Yellow Nail Bed Appearance [place] Temperature Warm Moisture Dry Turgor Normal Color Normal All Pressure Points Assessed Yes Evidence of Incision/Wounds/Breakdown No Mucous membranes moist, pink and intact Yes Oral Cavity Normal Missing Teeth Musculoskeletal Assessment Musculoskeletal Symptoms Generalized Weakness Teaching Record Start: 06/28/16 22: 30 Freq: Q12H Status: Discharge Document 06/29/16 06:24 ITC (Rec: 06/29/16 06:27 ITC [id number]) Teaching Record: General Education Topics Hospital Environment Equipment Use Health Promotion Health Status Response Reinforcement needed Recipient Patient Education Provided: Details Verbalized to pt where they were, who the attending nurse is, and made pt aware where call light was and what the button felt like to alert staff that assistance is needed Document 06/29/16 22:15 TG (Rec: 06/29/16 22:47 [id number] [id number]) Teaching Record: General Education Topics Medications Equipment Use Recipient Patient Education Provided: Details educated pt on the use of the call light, on pain meds Document 06/30/16 22:31 LEXA (Rec: 06/30/16 22:44 LEXA [id number]) Teaching Record: General Education Topics Medications Hospital Environment Diet Response Reinforcement needed Unable to comprehend Methods Demonstration Recipient Patient Education Provided: Details PT educated on use of carbajal- bey scale, use of call light , PT unable to verbalize understanding Document 07/01/16 09:50 KARINA (Rec: 07/01/16 11:41 KARINA [id number]) Teaching Record: General Education Topics Hospital Environment Methods Discussion Recipient Patient Thrombosis Risk Factor Assessment Start: 06/28/16 22: 30 Freq: .ONCE Status: Discharge Document 06/28/16 22:53 SML (Rec: 06/28/16 23:25 SML [id number]) Thrombosis Risk Factor Assessment Each Factor Represents 1 point Minor surgery planned Each Risk Factor Represents 3 Points Age over 75 years Each Risk Factor Represents 5 Points Hip, pelvis, or leg fracture ( < 1 month) Total Risk Factor Score 9 Risk Level Highest Risk Urinary catheter initiation/management Start: 06/28/16 22: 51 Freq: Status: Discharge Document 06/28/16 22:52 [facility] (Rec: 06/28/16 22:54 [facility] [id number]) Urinary Catheter Assessment Faulkner Inserted Using Sterile Technique Yes Urethral (Faulkner) Date of Insertion 06/28/16 Indication catheter insertion prolonged immobilization Catheter Present on Admission No Size (Estonian) 16 turkmen Catheter Balloon Amount (ml) 10 Patency Patent/Draining Catheter Securement Device in Place Yes Leg Bag Applied No Urine Appearance Clear Color Bright Yellow Odor Normal Output, Urine Amount 50 Document 06/29/16 09:00 CNB (Rec: 06/29/16 14:37 CNB [id number]) Urinary Catheter Assessment Urethral (Faulkner) Indication catheter insertion prolonged immobilization Catheter Present on Admission No Patency Patent/Draining Catheter Securement Device in Place Yes Leg Bag Applied No Urine Appearance Clear Color Bright Yellow Odor Normal Document 06/29/16 14:36 CNB (Rec: 06/29/16 14:37 CNB [id number]) Urinary Catheter Assessment Urethral (Faulkner) Indication catheter insertion prolonged immobilization Catheter Present on Admission No Patency Patent/Draining Catheter Securement Device in Place Yes Leg Bag Applied No Urine Appearance Clear Color Bright Yellow Odor Normal Document 06/30/16 08:00 HBD (Rec: 06/30/16 10:48 HBD [id number]) Urinary Catheter Assessment Urethral (Faulkner) Indication catheter insertion prolonged immobilization Catheter Present on Admission No Patency Patent/Draining Catheter Securement Device in Place Yes Urine Appearance Cloudy Color Dark Yellow Document 06/30/16 09:31 CNB (Rec: 06/30/16 09:31 CNB [id number]) Urinary Catheter Assessment Urethral (Faulkner) Indication catheter insertion prolonged immobilization Catheter Present on Admission No Patency Patent/Draining Catheter Securement Device in Place Yes Leg Bag Applied No Urine Appearance Cloudy Sediment Mucous Threads Color Dark Yellow Document 07/01/16 11:33 NKP (Rec: 07/01/16 11:35 NKP [id number]) Urinary Catheter Assessment Urethral (Faulkner) Catheter Present on Admission No Date Urinary Catheter Discontinued 07/01/16 Time Urinary Catheter Discontinued 11:34 Able to Void After Catheter Discontinued No Vital Signs Assessment Start: 06/28/16 22: 30 Freq: Q4H Status: Discharge Document 06/28/16 22:52 [facility] (Rec: 06/28/16 22:54 P [id number]) Vital Signs with MEWS Temperature (97.6 F-99.6 F) 98.3 F Temperature Source Oral Pulse Rate 96 Respiratory Rate 17 Pulse Oximetry (95-100) 94 L Oxygen Delivery Room Air Blood Pressure 142/94 Blood Pressure Location Left Arm Source Automatic Cuff Position Right Lateral Neuro Status *recalled from last Responds to voice documentation MEWS Score 2 Vital Signs Assessment Start: 06/29/16 01: 59 Freq: Q4H Status: Discharge Document 06/29/16 04:00 [facility] (Rec: 06/29/16 04:58 P [id number]) Vital Signs with MEWS Temperature (97.6 F-99.6 F) 98.4 F Temperature Source Axillary Pulse Rate 98 Respiratory Rate 18 Pulse Oximetry (95-100) 94 L Oxygen Delivery Room Air Blood Pressure 146/91 Blood Pressure Location Left Arm Source Automatic Cuff Position Right Lateral Neuro Status *recalled from last Responds to voice documentation MEWS Score 2 Document 06/29/16 07:18 AWE (Rec: 06/29/16 07:21 AWE [id number]) Vital Signs with MEWS Temperature (97.6 F-99.6 F) 98.4 F Temperature Source Oral Pulse Rate 85 Respiratory Rate 16 Pulse Oximetry (95-100) 93 L Blood Pressure 165/109 Blood Pressure Location Right Arm Source Automatic Cuff Position HOB Elevated Document 06/29/16 11:30 AWE (Rec: 06/29/16 11:32 AWE [id number]) Vital Signs with MEWS Temperature (97.6 F-99.6 F) 98.3 F Temperature Source Oral Pulse Rate 62 Respiratory Rate 16 Pulse Oximetry (95-100) 93 L Blood Pressure 102/79 Document 06/29/16 14:49 RLW (Rec: 06/29/16 14:50 RLW [id number]) Vital Signs with MEWS Temperature (97.6 F-99.6 F) 97.9 F Temperature Source Oral Pulse Rate 74 Respiratory Rate 16 Pulse Oximetry (95-100) 94 L Oxygen Delivery Room Air Blood Pressure 108/65 Blood Pressure Location Left Arm Source Automatic Cuff Position Right Lateral Document 06/29/16 22:56 [facility] (Rec: 06/29/16 22:56 [facility] [id number]) Vital Signs with MEWS Temperature (97.6 F-99.6 F) 98.2 F Temperature Source Oral Pulse Rate 66 Respiratory Rate 15 Pulse Oximetry (95-100) 93 L Oxygen Delivery Room Air Blood Pressure 98/67 Blood Pressure Location Left Arm Source Automatic Cuff Position HOB Elevated Neuro Status *recalled from last Alert documentation MEWS Score 2 Document 06/30/16 01:35 [facility] (Rec: 06/30/16 01:36 [facility] [id number]) Vital Signs with MEWS Temperature (97.6 F-99.6 F) 98.1 F Temperature Source Oral Pulse Rate 56 Respiratory Rate 15 Pulse Oximetry (95-100) 92 L Oxygen Delivery Room Air Blood Pressure 92/63 Blood Pressure Location Left Arm Source Automatic Cuff Position HOB Elevated Neuro Status *recalled from last Alert documentation MEWS Score 2 Document 06/30/16 06:49 AWE (Rec: 06/30/16 06:57 AWE [id number]) Vital Signs with MEWS Temperature (97.6 F-99.6 F) 97.9 F Temperature Source Oral Pulse Rate 59 Respiratory Rate 16 Pulse Oximetry (95-100) 94 L Blood Pressure 108/57 Blood Pressure Location Left Arm Source Automatic Cuff Position HOB Elevated Neuro Status *recalled from last Alert documentation MEWS Score 1 Document 06/30/16 11:01 AWE (Rec: 06/30/16 11:03 AWE [id number]) Vital Signs with MEWS Temperature (97.6 F-99.6 F) 97.8 F Temperature Source Oral Pulse Rate 53 Respiratory Rate 16 Pulse Oximetry (95-100) 97 Blood Pressure 115/66 Blood Pressure Location Left Arm Source Automatic Cuff Position HOB Elevated Document 06/30/16 15:00 BMP (Rec: 06/30/16 15:53 BMP [id number]) Vital Signs with MEWS Temperature (97.6 F-99.6 F) 98.0 F Temperature Source Oral Pulse Rate 61 Respiratory Rate 16 Pulse Oximetry (95-100) 98 Oxygen Delivery Room Air Blood Pressure 120/77 Blood Pressure Location Left Arm Source Automatic Cuff Position HOB Elevated Document 06/30/16 22:07 [facility] (Rec: 06/30/16 22:08 [id number] Vital Signs with MEWS Temperature (97.6 F-99.6 F) 97.7 F Temperature Source Oral Pulse Rate 62 Respiratory Rate 16 Pulse Oximetry (95-100) 973 H Oxygen Delivery Room Air Blood Pressure 107/74 Blood Pressure Location Left Arm Source Automatic Cuff Position HOB Elevated Neuro Status *recalled from last Alert documentation MEWS Score 1 Document 07/01/16 00:37 [facility] (Rec: 07/01/16 00:37 [id number] Vital Signs with MEWS Temperature (97.6 F-99.6 F) 97.5 F L Temperature Source Oral Pulse Rate 65 Respiratory Rate 16 Pulse Oximetry (95-100) 92 L Oxygen Delivery Room Air Blood Pressure 97/67 Blood Pressure Location Left Arm Source Automatic Cuff Position HOB Elevated Neuro Status *recalled from last Alert documentation MEWS Score 2 Document 07/01/16 06:24 AWE (Rec: 07/01/16 06:24 AWE [id number]) Vital Signs with MEWS Temperature (97.6 F-99.6 F) 97.6 F Temperature Source Axillary Pulse Rate 71 Respiratory Rate 16 Pulse Oximetry (95-100) 97 Oxygen Delivery Room Air Blood Pressure 131/89 Blood Pressure Location Left Arm Source Automatic Cuff Position HOB Elevated Neuro Status *recalled from last Alert documentation MEWS Score 1 Document 07/01/16 11:16 CM (Rec: 07/01/16 11:17 CM [id number]) Vital Signs with MEWS Temperature (97.6 F-99.6 F) 98 F Temperature Source Axillary Pulse Rate 73 Respiratory Rate 16 Pulse Oximetry (95-100) 97 Oxygen Delivery Room Air Blood Pressure 136/93 Blood Pressure Location Right Arm Source Automatic Cuff Neuro Status *recalled from last Agitation/Confusion documentation MEWS Score 2 Document 07/01/16 14:30 AWE (Rec: 07/01/16 14:32 AWE [id number]) Vital Signs with MEWS Temperature (97.6 F-99.6 F) 98.1 F Temperature Source Oral Pulse Rate 60 Respiratory Rate 16 Pulse Oximetry (95-100) 95 Oxygen Delivery Room Air Blood Pressure 126/49 Blood Pressure Location Right Arm Source Automatic Cuff Position HOB Elevated Neuro Status *recalled from last Alert documentation MEWS Score 1 Discharge Information Observation Discharge Date/Time: 07/01/16 17:33 Observation Discharge Disposition: Transfer SNF Observation Discharge Comment: Instructions: Urinary Tract Infection in Women (DC) Stand-Alone Forms: Prescriptions: Acetaminophen [Tylenol] Yoakim,Kamal N OxyCODONE Immed Rel [Roxicodone 5 MG] Yoakim,Kamal N Acetaminophen [Tylenol] Yoakim,Kamal N Ciprofloxacin HCl [Cipro] Yoakim,Kamal N Docusate [Colace] Yoakim,Kamal N Omeprazole [PriLOSEC] Yoakim,Kamal N Sennosides/Docusate Sodium [Senna Plus] Yoakim,Kamal N Thiamine (B-1) [Vitamin B-1] Yoakim,Kamal N Visit Report - Forms: - Referrals: Jp Mcadams MD (Primary Care Provider) Radiology Results Chest X-Ray 06/29/16 02:38
[2016-06-29 06:58] LABS: VBG HCO3 25.5 mEq/L (21-27); VBG PH 7.47 pH Units (7.32-7.42)
[2016-06-29 07:03] LABS: INR 1.3; Prothrombin Time 13.8 Seconds (9.4-12.1)
[2016-06-29 07:06] LABS: Activated Partial Thrombo Time 32.9 Seconds (26.0-36.0)
[2016-06-29 07:18] LABS: Alanine Aminotransferase 20 Units/L (0-55); Albumin 3.4 g/dL (3.5-5.0); Albumin/Globulin Ratio 1.1 (1.1-2.2); Alkaline Phosphatase 83 Units/L (38-126); Aspartate Amino Transferase 65 Units/L (5-34); BUN/Creatinine Ratio 25 (6-26); Bilirubin,Total 1.1 mg/dL (0.2-1.2); Blood Urea Nitrogen 22 mg/dL (7-20); Calcium 9.1 mg/dL (8.6-10.8); Carbon Dioxide 21 mEq/L (19-29); Chloride 106 mEq/L (98-109); Cholesterol 183 mg/dL (< 200); Globulin 3.2 g/dL (2.4-3.5); Glucose 149 mg/dL (70-99); HDL Cholesterol 62 mg/dL (40-59); LDL Cholesterol,Calculated 109 mg/dL (0-99); Magnesium 1.7 mg/dL (1.6-2.6); Osmolality,Calculated 294 (280-300); Potassium 3.8 mEq/L (3.5-4.5); Sodium 139 mEq/L (136-145); Total Protein 6.6 g/dL (6.0-8.3); Triglycerides 62 mg/dL (< 150); eGFR For African Americans > 60 (> 60); eGFR For Non-African Americans > 60 (> 60)
[2016-06-29 07:22] LABS: Basophils % 0.1 %; Hematocrit 43.3 % (35.3-44.9); Hemoglobin 14.6 g/dL (11.5-15.4); Immature Granulocytes % 0.5 % (0-4); Lymphocytes # 1.9 K/mcL (0.6-4.6); Lymphocytes % 10.1 %; Mean Corpuscular HGB Conc 33.7 g/dL (31.6-35.5); Mean Corpuscular Hemoglobin 29.9 pg (28.0-33.3); Mean Corpuscular Volume 88.5 fL (83.0-100.0); Mean Platelet Volume 10.8 fL (9.4-12.4); Monocytes # 1.9 K/mcL (0.0-1.3); Monocytes % 9.9 %; Neutrophils # 14.8 K/mcL (1.6-8.9); Platelet Count 249 K/mcL (140-400); Red Blood Count 4.89 M/mcL (3.82-4.97); Red Cell Distribution Width 13.5 % (11.5-14.5); Segmented Neutrophils % 79.4 %
[2016-06-29] MEDS: risperiDONE 0.25 MG TABLET PO SCH (09:13)
[2016-06-29] MEDS: traMADol 50 MG TABLET PO SCH ×4 (09:13→22:23)
[2016-06-29] MEDS: Aspirin 81 MG TAB.CHEW PO SCH (09:14)
--- NOTE | 2016-06-29 13:04 | Orthopedic Consult Note ---
Date of Encounter: 06/30/16 Time of Encounter: 13:02 Assessment and Plan (1) Closed subcapital fracture of right femur Current Visit: Yes Status: Acute Discussed with her son Lincoln Cerda - [phone] and facility staff. She is nonambulatory at the facility, and secondary to her high fall risk and high risk for surgery; her family has decided to continue with nonoperative management. Continue with pain control daily. Focus on bed to chair mobility. WB with transfer only as needed. Start PT - Hip precautions - ABD pillow recommended. Close monitoring. f/up in office in 1 week Qualifiers: Encounter type: initial encounter Qualified Code(s): S72.011A - Unspecified intracapsular fracture of right femur, initial encounter for closed fracture (2) At risk for fall due to comorbid condition Current Visit: Yes Status: Acute (3) Advanced dementia Current Visit: Yes Status: Chronic (4) Blindness of both eyes Current Visit: Yes Status: Chronic (5) Expressive aphasia Current Visit: Yes Status: Chronic (6) Schizophrenia, unspecified Current Visit: Yes Status: Chronic Qualifiers: Schizophrenia type: undifferentiated schizophrenia Qualified Code(s): F20.3 - Undifferentiated schizophrenia History of Present Illness Chief complaint: Subcapital Femoral fracture HPI: Ms. Cerda is a 85 year old female,transferred from [facility] last night for a Right Subcapital femur fracture. She fell at facility - unwitnessed fall. She has dementia, and is blind. Most of the communication was with her son who is POA. She is non-verbal and does not ambulate on her own. She will stand occasionally at facility per facility nursing staff, but is unsteady and will require assistance from bed to chair position. Her pain is controlled currently with pain medication, she does not respond to pain during exam. Past Med Surg Social Fam HX - Past Medical History Medical history: arthritis, CVA (Traumatic subdural hemorrhage history. Expressive aphasia.), dementia, GERD, hyperlipidemia, hypertension, osteoporosis , renal disease (Stress urinary incontinence with frequent urinary tract infections.), thyroid disease, other (Blindness. Macular degeneration.) Psychiatric history: anxiety, depression, panic disorder, schizophrenia, other - Past Surgical History Surgical History: non-contributory, other - Social History Smoking Status: Unknown if ever smoked Smokeless Tobacco Status: No Alcohol use: none Drug use: none - Family History Father Living Status: Hx Family Cardiac Disorders: Yes Hx Family Respiratory Disorders: Yes Hx Family Cancer: Yes Hx Family GI Disorders: No Hx Family Genitourinary Disorders: No Hx Family Endocrine Disorder: Yes Hx Family Musculoskeletal Disorders: No Hx Family Neuromuscular Disorders: No Hx Family Neurologic Disorders: No Hx Family HEENT Disorders: No Hx Family Autoimmune Disorders: No Hx Family Reproductive Disorders: No Hx Family Psychosocial Disorders: No Hx Family Medical Disorders: No Medications and Allergies Alendronate Sodium [Fosamax] 70 mg PO QWEEK 05/05/15 [History] Calcium Carbonate/Vitamin D3 [Calcium 600 + Vit D Softgel] 1 each PO DAILY 05/05 [History] Citalopram [CeleXA] 10 mg PO DAILY 05/05/15 [History] Levothyroxine [Synthroid] 75 mcg PO DAILY 05/05/15 [History] Lisinopril [Zestril] 10 mg PO DAILY 05/05/15 [History] Magnesium Hydroxide [Milk of Magnesia] 30 ml PO DAILY PRN 05/05/15 [History] Propranolol [Inderal] 20 mg PO BID 05/05/15 [History] TraMADol [Ultram] 50 mg PO TID 05/05/15 [History] Donepezil [Aricept] 5 mg PO DAILY 11/16/15 [History] Potassium Chloride [K-Tab ER] 1 tab PO DAILY 06/28/16 [History] RisperiDONE [RisperDAL] 0.25 mg PO DAILY 06/28/16 [History] HYDROcodone/Acet 5/325 mg [Voss 5-325 mg] 1 tab PO Q8H PRN 06/29/16 [History] Allergies Penicillins Allergy (Verified 05/05/15 17:23) See Comments All Systems Reviewed: A 10-system review of systems was performed and is negative for pertinent findings except as documented above in the HPI. - Constitutional Constitutional: stops breathing during sleep - Musculoskeletal Musculoskeletal: no abnormal gait, no limited range of motion Physical Exam - Constitutional Vitals: Temp Pulse Resp BP Pulse Ox 98.3 F 62 16 102/79 93 L 06/29/16 11:30 06/29/16 11:30 06/29/16 11:30 06/29/16 11:30 06/29/16 11:30 - Fracture right hip Appearance: swelling Compartments: soft Distal extremity neurovascularly intact: Yes Proximal joint involvement: No Distal joint involvement: No Results - Labs Result Diagrams: 06/30/16 08:33 06/29/16 05:56 Labs: Abnormal lab results WBC 18.7 K/mcL (4.3-11.1) H 06/29/16 05:56 Neutrophils # 14.8 K/mcL (1.6-8.9) H 06/29/16 05:56 Monocytes # 1.9 K/mcL (0.0-1.3) H 06/29/16 05:56 PT 13.8 Seconds (9.4-12.1) H 06/29/16 05:56 VBG pH 7.47 pH Units (7.32-7.42) H 06/29/16 05:56 VBG pCO2 35 mmHg (41-51) L 06/29/16 05:56 VBG pO2 102 mmHg (25-40) H 06/29/16 05:56 BUN 22 mg/dL (7-20) H 06/29/16 05:56 Glucose 149 mg/dL (70-99) H 06/29/16 05:56 AST 65 Units/L (5-34) H 06/29/16 05:56 Albumin 3.4 g/dL (3.5-5.0) L 06/29/16 05:56 LDL Cholesterol, Calc 109 mg/dL (0-99) H 06/29/16 05:56 HDL Cholesterol 62 mg/dL (40-59) H 06/29/16 05:56 H & H 06/29/16 Range/Units 05:56 Hgb 14.6 (11.5-15.4) g/dL Hct 43.3 (35.3-44.9) % All other labs normal. Consult Discharge Plan - Plan Referrals: Jp Mcadams MD [Primary Care Provider] -
[2016-06-29] MEDS ORDERED: *HR* Enoxaparin 30 MG/0.3 ML SYRINGE SQ ONE (17:27)
--- NOTE | 2016-06-29 17:28 | Electrocardiograph Report ---
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
--- NOTE | 2016-06-29 17:42 | Event Note ---
Date of Encounter: 06/29/16 Time of Encounter: 16:55 History and physical reviewed. Patient continued to be in distress because her pain, I had family meeting, discussed with family at bedside risk and benefit. We will check EKG, with her leukocytosis will check urine analysis. Recheck CBC next morning. Adjust pain medication. Family wanted to meet orthopedic tomorrow for further discussion about risk and benefit. Based on orthopedic recommendation for now conservative management for next 2 days.
[2016-06-29] MEDS: D5% in 0.45% NACL 1,000 ML IVC SCH (18:22)
[2016-06-29] MEDS: Sennosides/Docusate Sodium TABLET PO SCH (18:22)
[2016-06-29] MEDS: Acetaminophen 325 MG TABLET PO SCH (18:22)
[2016-06-29 22:16] LABS: Bilirubin,Urine Small (Negative); Blood,Urine Large (Negative); Clarity,Urine Cloudy (Clear); Color,Urine Dark Yellow (Yellow); Glucose,Urine (UA) 250 mg/dL (Normal); Ketones,Urine Negative (Negative); Leukocyte Esterase,Urine Moderate (Negative); Nitrite,Urine Positive (Negative); PH,Urine 6.5 pH Units (5.0-8.0); Protein,Urine 100 mg/dL (Neg-Trace); Urobilinogen,Urine Normal (Normal)
[2016-06-29 22:18] LABS: Bacteria,Urine Many per hpf (None-Few); Hyaline Casts,Urine None Seen per lpf (None-Few); RBC,Urine 15-30 per hpf (0-3); Squamous Epithelial Cell,Urine Moderate per lpf (None-Few); WBC,Urine TNTC per hpf (0-3)
[2016-06-29] MEDS: Thiamine (B-1) 100 MG TABLET PO SCH (22:25)
[2016-06-30] MEDS: Acetaminophen 325 MG TABLET PO SCH ×4 (01:31→16:30)
[2016-06-30] MEDS ORDERED: Aztreonam 500 MG in D5% in Water (Mini-Bag+) 100 ML IVPB SCH (01:37)
[2016-06-30] MEDS: *HR* Enoxaparin 30 MG/0.3 ML SYRINGE SQ SCH (05:49)
--- NOTE | 2016-06-30 07:56 | Orthopedics Progress Note ---
Date of Encounter: 06/30/16 Time of Encounter: 07:55 Subjective Interval history: Patient with multiple medical comorbidities, minimal ambulator, uncertain based on CAT scan if this is new or old fracture Recommendation is conservative management as discussed with family. Pets chair pain control patient to be discharged back to facility today. Objective Vital signs: Vital Signs Temp Pulse Resp BP Pulse Ox 06/30/16 06:49 97.9 F 59 16 108/57 94 L 06/30/16 01:35 98.1 F 56 15 92/63 92 L 06/29/16 22:56 98.2 F 66 15 98/67 93 L 06/29/16 14:49 97.9 F 74 16 108/65 94 L 06/29/16 11:30 98.3 F 62 16 102/79 93 L Intake and Output 06/29/16 06/29/16 06/30/16 15:59 23:59 07:59 Intake Total 0 / 0 50 / 50 125 / 125 Output Total 350 / 350 130 / 130 Balance -350 / -350 50 / 50 -5 / -5 Intake: IV Fluids 100 / 100 Azactam 500 MG In 100 / 100 Dextrose 5% (Minibag+) 100 ML 100 ML @ 200 mls/ hr IVPB Q8HR [facility] Rx#: [id number] Oral 0 / 0 50 / 50 25 / 25 Output: Catheter 350 / 350 130 / 130 Other: Meal Lunch Percent of Meal Consumed 0% - Labs CBC & BMP: 06/29/16 05:56 06/29/16 05:56 Labs: Abnormal lab results WBC 18.7 K/mcL (4.3-11.1) H 06/29/16 05:56 Neutrophils # 14.8 K/mcL (1.6-8.9) H 06/29/16 05:56 Monocytes # 1.9 K/mcL (0.0-1.3) H 06/29/16 05:56 PT 13.8 Seconds (9.4-12.1) H 06/29/16 05:56 VBG pH 7.47 pH Units (7.32-7.42) H 06/29/16 05:56 VBG pCO2 35 mmHg (41-51) L 06/29/16 05:56 VBG pO2 102 mmHg (25-40) H 06/29/16 05:56 BUN 22 mg/dL (7-20) H 06/29/16 05:56 Glucose 149 mg/dL (70-99) H 06/29/16 05:56 AST 65 Units/L (5-34) H 06/29/16 05:56 Albumin 3.4 g/dL (3.5-5.0) L 06/29/16 05:56 LDL Cholesterol, Calc 109 mg/dL (0-99) H 06/29/16 05:56 HDL Cholesterol 62 mg/dL (40-59) H 06/29/16 05:56 Urine Clarity Cloudy (Clear) A 06/29/16 22:00 Ur Specific [place] 1.030 (1.010-1.025) H 06/29/16 22:00 Urine Protein 100 mg/dL (Neg-Trace) H 06/29/16 22:00 Urine Glucose (UA) 250 mg/dL (Normal) H 06/29/16 22:00 Urine Blood Large (Negative) H 06/29/16 22:00 Urine Nitrite Positive (Negative) A 06/29/16 22:00 Urine Bilirubin Small (Negative) H 06/29/16 22:00 Ur Leukocyte Esterase Moderate (Negative) H 06/29/16 22:00 Urine Microscopic RBC 15-30 per hpf (0-3) H 06/29/16 22:00 Urine Microscopic WBC TNTC per hpf (0-3) H 06/29/16 22:00 Ur Squamous Epith Cells Moderate per lpf (None-Few) H 06/29/16 22:00 Urine Bacteria Many per hpf (None-Few) H 06/29/16 22:00 Ur Culture Indicated? YES (NO) A 06/29/16 22:00 Consult Discharge Plan - Plan Referrals: Jp Mcadams MD [Primary Care Provider] -
--- NOTE | 2016-06-30 08:06 | Internal Med Progress Note ---
Date of Encounter: 06/30/16 Time of Encounter: 07:35 - Assessment and plan (1) Closed subcapital fracture of right femur Current Visit: Yes Status: Acute Qualifiers: Encounter type: initial encounter Qualified Code(s): S72.011A - Unspecified intracapsular fracture of right femur, initial encounter for closed fracture (2) Advanced dementia Current Visit: Yes Status: Chronic (3) UTI (urinary tract infection) Current Visit: Yes Status: Acute Qualifiers: Urinary tract infection type: acute cystitis Hematuria presence: without hematuria Qualified Code(s): N30.00 - Acute cystitis without hematuria (4) Malnutrition Current Visit: Yes Status: Acute - Time Spent With Patient Plan Continue antidiabetic for UTI, awaiting results of culture, appreciate orthopedic input. Check albumin and CBC, add nutritional supplement. Discussed with staff regular food assist with all meals . PT/OT. Up to chair if okay with orthopedic. Possible discharge in next 24 hours 25 - 35 minutes - Subjective Interval history: Patient seen and examined, no acute issue overnight, urine analysis is positive for UTI, patient in no distress - Constitutional Vitals: Temp Pulse Resp BP Pulse Ox 97.9 F 59 16 108/57 94 L 06/30/16 06:49 06/30/16 06:49 06/30/16 06:49 06/30/16 06:49 06/30/16 06:49 General appearance: Present: cachectic, cooperative. Absent: answers questions appropriately - Neck Neck exam general surgery: Present: supple, trachea midline. Absent: lymphadenopathy - Respiratory Respiratory exam: Present: decreased breath sounds. Absent: accessory muscle use, rales, rhonchi, wheezes - Cardiovascular Cardiovascular exam: Present: RRR, +S1, +S2. Absent: diastolic murmur, gallop, rubs, systolic murmur - GI/Abdominal GI/Abdominal exam: Present: normal bowel sounds, soft, no peritoneal signs. Absent: distended, tenderness - Extremities Exam Extremities exam: Present: warm. Absent: calf tenderness, cyanotic, pedal edema - Skin Skin exam: Present: dry, intact Internal Medicine: Result - Labs CBC & Chem 7: 06/29/16 05:56 06/29/16 05:56 Labs: Urine 06/29/16 Range/Units 22:00 Urine Color Dark Yellow (Yellow) Urine Clarity Cloudy A (Clear) Urine pH 6.5 (5.0-8.0) pH Units Ur Specific [place] 1.030 H (1.010-1.025) Urine Protein 100 H (Neg-Trace) mg/dL Urine Glucose (UA) 250 H (Normal) mg/dL - ABG Interpretation ABG results: PT/INR, D-dimer PT 13.8 Seconds (9.4-12.1) H 06/29/16 05:56 Consult Discharge Plan - Plan Referrals: Jp Mcadams MD [Primary Care Provider] -
[2016-06-30] MEDS: D5% in 0.45% NACL 1,000 ML IVC SCH (08:52)
[2016-06-30 09:05] LABS: Basophils % 0.1 %; Eosinophils # 0.2 K/mcL (0.0-0.6); Eosinophils % 0.9 %; Hematocrit 42.3 % (35.3-44.9); Hemoglobin 13.8 g/dL (11.5-15.4); Immature Granulocytes % 0.5 % (0-4); Lymphocytes # 2.8 K/mcL (0.6-4.6); Lymphocytes % 15.1 %; Mean Corpuscular HGB Conc 32.6 g/dL (31.6-35.5); Mean Corpuscular Hemoglobin 29.9 pg (28.0-33.3); Mean Corpuscular Volume 91.8 fL (83.0-100.0); Mean Platelet Volume 10.8 fL (9.4-12.4); Monocytes # 1.9 K/mcL (0.0-1.3); Monocytes % 10.2 %; Neutrophils # 13.4 K/mcL (1.6-8.9); Platelet Count 205 K/mcL (140-400); Red Blood Count 4.61 M/mcL (3.82-4.97); Segmented Neutrophils % 73.2 %
[2016-06-30] MEDS: Sennosides/Docusate Sodium TABLET PO SCH (09:53)
[2016-06-30] MEDS: risperiDONE 0.25 MG TABLET PO SCH (09:54)
[2016-06-30] MEDS: traMADol 50 MG TABLET PO SCH ×4 (09:54→22:19)
[2016-06-30] MEDS: Aspirin 81 MG TAB.CHEW PO SCH (09:54)
[2016-06-30] MEDS: Thiamine (B-1) 100 MG TABLET PO SCH (14:43)
[2016-07-01] MEDS: Acetaminophen 325 MG TABLET PO SCH ×4 (00:39→11:41)
[2016-07-01] MEDS: *HR* Enoxaparin 30 MG/0.3 ML SYRINGE SQ SCH (06:00)
[2016-07-01] MEDS: D5% in 0.45% NACL 1,000 ML IVC SCH (07:01)
[2016-07-01] MEDS: risperiDONE 0.25 MG TABLET PO SCH (09:08)
[2016-07-01] MEDS: traMADol 50 MG TABLET PO SCH ×2 (09:08→13:38)
[2016-07-01] MEDS: Thiamine (B-1) 100 MG TABLET PO SCH (09:18)
[2016-07-01] MEDS: Sennosides/Docusate Sodium TABLET PO SCH (09:19)
[2016-07-01] MEDS: Aspirin 81 MG TAB.CHEW PO SCH (09:19)
[2016-07-01 14:32] VITALS: BP 126/49
--- NOTE | 2016-07-01 16:09 | Discharge Summary ---
Date of Encounter: 07/01/16 Time of Encounter: 16:02 - Discharge Diagnosis (1) Closed subcapital fracture of right femur Priority: Primary Status: Acute Qualifiers: Encounter type: initial encounter Qualified Code(s): S72.011A - Unspecified intracapsular fracture of right femur, initial encounter for closed fracture (2) Advanced dementia Priority: Secondary Status: Chronic (3) UTI (urinary tract infection) Priority: Primary Status: Acute Qualifiers: Urinary tract infection type: acute cystitis Hematuria presence: without hematuria Qualified Code(s): N30.00 - Acute cystitis without hematuria (4) Malnutrition Priority: Secondary Status: Acute - Discharge Medications Prescriptions: Acetaminophen [Tylenol] 650 mg PO Q6HR PRN #60 tablet PRN Reason: Moderate Pain OxyCODONE Immed Rel [Roxicodone 5 MG] 5 mg PO Q6HR PRN #30 tablet PRN Reason: Moderate Pain (4-6) Acetaminophen [Tylenol] 650 mg PO BID PRN #60 tablet PRN Reason: Mild Pain (1-3) Ciprofloxacin HCl [Cipro] 500 mg PO BID #14 tablet Docusate [Colace] 100 mg PO BID PRN #60 capsule PRN Reason: Constipation Omeprazole [PriLOSEC] 20 mg PO DAILY@0630 #30 capsule.dr Stoll/Docusate Sodium [Senna Plus] 1 each PO DAILY #60 tablet Thiamine (B-1) [Vitamin B-1] 200 mg PO DAILY #90 tablet Home Medications: Alendronate Sodium [Fosamax] 70 mg PO QWEEK 05/05/15 [History] Calcium Carbonate/Vitamin D3 [Calcium 600 + Vit D Softgel] 1 each PO DAILY 05/05 [History] Citalopram [CeleXA] 10 mg PO DAILY 05/05/15 [History] Levothyroxine [Synthroid] 75 mcg PO DAILY 05/05/15 [History] Lisinopril [Zestril] 10 mg PO DAILY 05/05/15 [History] Magnesium Hydroxide [Milk of Magnesia] 30 ml PO DAILY PRN 05/05/15 [History] Propranolol [Inderal] 20 mg PO BID 05/05/15 [History] TraMADol [Ultram] 50 mg PO TID 05/05/15 [History] Donepezil [Aricept] 5 mg PO DAILY 11/16/15 [History] Potassium Chloride [K-Tab ER] 1 tab PO DAILY 06/28/16 [History] RisperiDONE [RisperDAL] 0.25 mg PO DAILY 06/28/16 [History] HYDROcodone/Acet 5/325 mg [Arion 5-325 mg] 1 tab PO Q8H PRN 06/29/16 [History] Acetaminophen [Tylenol] 650 mg PO BID PRN #60 tablet 07/01/16 [Rx] Acetaminophen [Tylenol] 650 mg PO Q6HR PRN #60 tablet 07/01/16 [Rx] Ciprofloxacin HCl [Cipro] 500 mg PO BID #14 tablet 07/01/16 [Rx] Docusate [Colace] 100 mg PO BID PRN #60 capsule 07/01/16 [Rx] Omeprazole [PriLOSEC] 20 mg PO DAILY@0630 #30 capsule. 07/01/16 [Rx] OxyCODONE Immed Rel [Roxicodone 5 MG] 5 mg PO Q6HR PRN #30 tablet 07/01/16 [Rx] Sennosides/Docusate Sodium [Senna Plus] 1 each PO DAILY #60 tablet 07/01/16 [Rx] Thiamine (B-1) [Vitamin B-1] 200 mg PO DAILY #90 tablet 07/01/16 [Rx] Allergies/Adverse Reactions: Allergies Penicillins Allergy (Verified 05/05/15 17:23) See Comments Procedures/tests Complete & Pending: Procedures Performed prior 72 hours Category Date Time Status ECG 12 lead ECG [ECG] AM 0600 Y 06/29/16 06:00 Completed EKG [ECG 12 lead ECG] [ECG] Routine Y 06/29/16 18:39 Completed Date of admission: 06/28/16 22:06 Primary care physician: Jp Mcadams MD Consults: 06/28/16 23:25 Consult to Polisher [facility] [CONS] Routine Reason for SW Consult: Rehab placement 06/29/16 02:03 Consult to Occupational Therapy [CONS] Routine Comment: Evaluate, develop and implement POC Consult to Physical Therapy [CONS] Routine Comment: Evaluate, develop and implement POC 06/29/16 08:00 Consult to Physician [CONS] Routine Consulting Provider: Rick Lizarraga Reason for Consult: Acute right hip fracture Time Notified: 02:02 Call Completed: Yes Discharging clinician: David Coffey - Patient Status Disposition: Transfer SNF Condition: Fair Functional capacity at discharge: uses cane/walker Overall status at discharge: patient is not back to baseline - Discharge Instructions Instructions: Urinary Tract Infection in Women (DC) Follow Up With: Jp Mcadams MD [Primary Care Provider] - - Diet and Activity Activity: as per physical therapy Diet: advance to your usual diet Interval History: Ms. Cerda is a 85 year old female,transferred from [facility] for a Right Subcapital femur fracture. She fell at facility - unwitnessed fall. She has dementia, and is blind. She is non-verbal and does not ambulate on her own. She will stand occasionally at facility per facility nursing staff, but is unsteady and will require assistance from bed to chair position. Orthopedic Surgery was consulted he stated that Patient with multiple medical comorbidities, minimal ambulator, uncertain based on CAT scan if this is new or old fracture, Recommendation is conservative management , Orthopedic team discussed with family. Patient had urinary tract infection, will start patient on ciprofloxacin, patient had volume depletion, she responded well to IV fluids. Occupational therapy and physical therapy stated that the patient is a poor candidate for rehabilitation. Discussed with family about different options including palliative care and hospice. Surgery team recommended weightbearing as tolerated with Asst. surgery team agreed for patient to be discharged to ECF , and discussed with staff. Post voiding residual is 80 Hospital course: Ms. Cerda is a 85 year old female - Time Spent with Patient Total time spent providing and/or coordinating discharge services: Less than 30 minutes - Constitutional Vitals: Temp Pulse Resp BP Pulse Ox 98.1 F 60 16 126/49 95 07/01/16 14:30 07/01/16 14:30 07/01/16 14:30 07/01/16 14:30 07/01/16 14:30 General appearance: Present: cachectic, cooperative. Absent: answers questions appropriately
--- NOTE | 2016-07-01 16:16 | Physician Discharge Referral ---
ExtendedCare Referral Info Provider in Charge after Transfer: PCP Institutional Level of Care: Intermediate - MR - Diagnosis (1) Closed subcapital fracture of right femur Status: Acute (2) Advanced dementia Status: Chronic (3) UTI (urinary tract infection) Status: Acute (4) Malnutrition Status: Acute - Transfer Medications Prescriptions: Acetaminophen [Tylenol] 650 mg PO Q6HR PRN #60 tablet PRN Reason: Moderate Pain OxyCODONE Immed Rel [Roxicodone 5 MG] 5 mg PO Q6HR PRN #30 tablet PRN Reason: Moderate Pain (4-6) Acetaminophen [Tylenol] 650 mg PO BID PRN #60 tablet PRN Reason: Mild Pain (1-3) Ciprofloxacin HCl [Cipro] 500 mg PO BID #14 tablet Docusate [Colace] 100 mg PO BID PRN #60 capsule PRN Reason: Constipation Omeprazole [PriLOSEC] 20 mg PO DAILY@0630 #30 capsule.dr Riconosidemoshe/Docusate Sodium [Senna Plus] 1 each PO DAILY #60 tablet Thiamine (B-1) [Vitamin B-1] 200 mg PO DAILY #90 tablet Home Medications: Alendronate Sodium [Fosamax] 70 mg PO QWEEK 05/05/15 [History] Calcium Carbonate/Vitamin D3 [Calcium 600 + Vit D Softgel] 1 each PO DAILY 05/05 [History] Citalopram [CeleXA] 10 mg PO DAILY 05/05/15 [History] Levothyroxine [Synthroid] 75 mcg PO DAILY 05/05/15 [History] Lisinopril [Zestril] 10 mg PO DAILY 05/05/15 [History] Magnesium Hydroxide [Milk of Magnesia] 30 ml PO DAILY PRN 05/05/15 [History] Propranolol [Inderal] 20 mg PO BID 05/05/15 [History] TraMADol [Ultram] 50 mg PO TID 05/05/15 [History] Donepezil [Aricept] 5 mg PO DAILY 11/16/15 [History] Potassium Chloride [K-Tab ER] 1 tab PO DAILY 06/28/16 [History] RisperiDONE [RisperDAL] 0.25 mg PO DAILY 06/28/16 [History] HYDROcodone/Acet 5/325 mg [[place] 5-325 mg] 1 tab PO Q8H PRN 06/29/16 [History] Acetaminophen [Tylenol] 650 mg PO BID PRN #60 tablet 07/01/16 [Rx] Acetaminophen [Tylenol] 650 mg PO Q6HR PRN #60 tablet 07/01/16 [Rx] Ciprofloxacin HCl [Cipro] 500 mg PO BID #14 tablet 07/01/16 [Rx] Docusate [Colace] 100 mg PO BID PRN #60 capsule 07/01/16 [Rx] Omeprazole [PriLOSEC] 20 mg PO DAILY@0630 #30 capsule. 07/01/16 [Rx] OxyCODONE Immed Rel [Roxicodone 5 MG] 5 mg PO Q6HR PRN #30 tablet 07/01/16 [Rx] Sennosides/Docusate Sodium [Senna Plus] 1 each PO DAILY #60 tablet 07/01/16 [Rx] Thiamine (B-1) [Vitamin B-1] 200 mg PO DAILY #90 tablet 07/01/16 [Rx] Allergies/Adverse Reactions: Allergies Penicillins Allergy (Verified 05/05/15 17:23) See Comments - Respiratory Orders Smoking Cessation: Smoking cessation has been advised. For more information, call the [place] Tobacco Quit Line at 7-650-FZRD-NOW. - Ancillary Orders May use pressure relief devices daily prn - Mobility Orders Ambulate - Rehabiliation Orders Rehab Potential: Fair Rehab Orders: Evaluation for Physical Therapy, Evaluation for Occupational Therapy - Treatments Fleet enema rectally every other day PRN cleansing purposes - Diet Orders Mechanical Soft CERTIFICATION: I certify that the transfer of the above named patient to an Extended Care Facility is necessary for the continuing treatment of the diagnosis listed. The above information is true and accurate reflection of patient's current condition. Confidential - Redisclosure prohibited without a patient's written consent.
--- NOTE | 2016-07-01 17:45 | Electrocardiograph Report ---
[address] [place], [place] [address] Test Date: 2016-06-29 Pat Name: Rowena Cerda Department: [id number] Room: [facility] Gender: F Plastic Surgery Assistant: : [id number] Requested By: David Coffey Order Number: [id number] Reading MD: Lincoln Valencia Measurements Intervals Simpson Rate: 63 P: 55 LA: 153 QRS: -1 QRSD: 91 T: 42 QT: 434 QTc: 441 Interpretive Statements SINUS RHYTHM LATERAL ST DEPRESSION Electronically Signed On 07-01-2016 17:43:28 EST by Lincoln Valencia
== END 2016-07-01 17:33 ==
LOC: 3NENU
PROVIDERS: ADMIT Family Medicine; ATTEND Internal Medicine